=== PATIENT | female | born 1950 | race African-American/Black ===

== ENCOUNTER 2019-11-20 11:21 | Outpatient (CLI) | payer MEDICARE, OTHER, SELFPAY ==
--- NOTE | 2019-11-20 | XR_ITS ---
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 FINDINGS: Heart: Cardiomegaly. Calcified hilar nodes. Tortuous thoracic aorta. Lungs: Segmental elevation hemidiaphragm. Moderate chronic emphysematous changes. Calcified granuloma s. No acute pulmonary infiltrates. Bones: Postoperative changes lower cervical spine. XR/XR chest 2V* [id number] IMPRESSION: 1. No acute pulmonary infiltrates and no significant interval changes since 2018 2. Chronic granulomatous disease. 3. Cardiomegaly.
== END 2019-11-20 11:22 | disposition home or self-care (01) ==
LOC: RADOUTREAD 12:05
PROVIDERS: Family Provider Family Medicine; PCP Family Medicine; Visit Provider Family Medicine
DX: Z01.89 Encounter for other specified special examinations (principal)

== ENCOUNTER 2020-01-17 07:28 | Inpatient (IN) | payer MEDICARE, OTHER, SELFPAY ==
[2020-01-17] VITALS (14 sets, daily range): BP systolic 136–228; BP diastolic 57–131; PULSE 71–103; RESP 18–26; TEMP 36.9–39.3; O2SAT 89–100; BMI 47.5
--- NOTE | 2020-01-17 07:44 | XR_ITS ---
WS: [id number] XR chest 1V portable [id number] REASON FOR EXAM: cough/congestion FINDINGS: Prominent calcified granulomas are seen in the upper lungs and in the right hilum. These pa tterns are similar to the previous exam November 20, 2019. There is arteriosclerotic changes seen in the arch the aorta. There is chronic obstructive pulmonary disease findings noted. XR/XR chest 1V portable [id number] IMPRESSION: Prominent granulomas right lung particularly. Chronic obstructive pulmonary disease. Arteriosclerotic changes.
--- NOTE | 2020-01-17 07:44 | ED_ITS ---
Documented by User: NANI Burns 01/17/20 11:19 HPI - SOB/Dyspnea General: Chief Complaint: General Medical Stated Complaint: FEVER, FALL, WEAKNESS Time Seen by Provider: 01/17/20 07:43 Source: patient Mode of arrival: ambulatory Limitations: no limitations History of Present Illness: HPI Narrative: Patient is a 69-year-old female who presents to ED today with a complaint of fever and shortness of breath. She was triaged as an additional complaint of a fall however patient states she just rolled out of bed this morning. She has no complaints related to the fall. Patient tells me she began noticing fevers yesterday as high as 103. She reports shortness of breath without chest pains. Denies cough/congestion. She has not had any sick contacts or recent travel. Patient reports a history of COPD and wears a CPAP at night. She normally does not require any O2 during the day. Patient was reportedly 89% on room air upon arrival. Patient has a history of diabetes, hypertension, thyroid disease. She admittedly is not very good about taking her routine medications. She is very hypertensive upon arrival at 228/131. Patient states she has not taken any of her blood pressure medications this morning. She states normally when she takes her BP at home systolic normally runs in the 170s. She does not complain of any lower extre mity pain or swelling. When asked patient does complain of some slight dysuria and urinary frequency. She denies flank pain. Reports very mild lower abdominal pain/lower back pain (this is chronic). MD elicited complaint: shortness of breath Pertinent past history: COPD Onset (ago): day(s) Exacerbating factors: nothing Relieving factors: nothing Known history of: COPD Associated symptoms: Reports fever(s); Deny abdominal pain, chest congestion, chest pain, hemoptysis, lightheadedness, nausea, palpitations, syncope or vomiting Treatment prior to arrival: none Review of Systems Const: Reports: fever; Denies: chills, body aches, change in appetite, change in weight, fatigue or malaise Eyes: Denies: change in vision, blurry vision, floaters or seeing flashes ENMT: Denies: throat pain, enlarged tonsils or painful swallowing Card: Reports: shortness of breath on exertion (chronically ); Denies: chest pain, palpitations, irregular heart rhythm, edema, swelling of feet/ankles, lightheadedness, syncope or pre-syncope Resp: Reports: shortness of breath; Denies: productive cough, non-productive cough, pain on inspiration, coughing up blood or chest congestion GI: Reports: diarrhea (over the past 2 days); Denies: abdominal pain, nausea or vomiting : Reports: painful urination, urinary frequency and urinary urgency; Denies: flank pain, difficulty urinating or urinary incontinence Musc: Denies: neck pain or back pain (chronic lower back pain) Skin/Breast: Denies: rash Neuro: Denies: headache, numbness in extremities, weakness in extremities or changes in sensation PFSH ED PFSH: Medical History (Updated 01/17/20 @ 11:59 by Jim Walton MD) Chronic back pain Chronic neck pain Diabetes History of osteoarthritis Hypertension Surgical History (Updated 01/17/20 @ 11:59 by Jim Walton MD) History of back surgery History of neck surgery Family History (Updated 01/17/20 @ 11:59 by Jim Walton MD) Other Diabetes Social History (Updated 01/17/20 @ 12:00 by Jim Walton MD) Smoking and tobacco status: former smoker Alcohol intake: never Substance/Drug Use: never Physical Exam Const: COMMON NORMALS: no apparent distress, oriented x3, no limitations and alert NUTRITIONAL APPEARANCE: obese morbidly obese ORIENTATION/CONSCIOUSNESS: Yes oriented to person, Yes oriented to place and Yes oriented to time HENMT: COMMON NORMALS: normocephalic and head/scalp atraumatic HEAD & SCALP: normocephalic and atraumatic FACE & SINUS: normal facial exam TEETH & GINGIVA: Yes dentures THROAT: posterior oropharynx normal, tonsils normal and uvula midline Eye: COMMON NORMALS: PERRL and EOMs intact bilaterally PUPIL: Yes PERRL Neck/C-Spine: COMMON NORMALS: full ROM, no lymphadenopathy and no meningeal signs Chest: COMMONS NORMALS: inspection of chest normal and palpation of chest normal Resp: COMMON NORMALS: normal respiratory effort and clear to auscultation bilaterally AUSCULTATION: clear to auscultation bilaterally and diminished lung sounds (bilateral bases ) Cardio: COMMON NORMALS: regular rate and regular rhythm RATE: regular rate RHYTHM: regular rhythm GI: COMMON NORMALS: normal to inspection, nondistended, normoactive bowel sounds, soft to palpation, non-tender, no hepatosplenomegaly and no masses PALPATION: Yes soft and Yes no hepatosplenomegaly : COMMON NORMALS: Yes no CVA tenderness BLADDER/KIDNEY EXAM: Yes no CVA tenderness Back/Pelvis: COMMON NORMALS: no CVA tenderness Extremity: COMMON NORMALS: normal to inspection, full ROM, normal capillary refill, no joint enlargement, no clubbing, cyanosis or edema, no calf tenderness and no pedal edema Neuro: PARUL COMA SCALE: document GCS findings [place] coma scale eye opening: Spontaneous [place] coma scale verbal response: Orientated [place] coma scale motor response: Obey commands [place] coma scale total score: 15 COMMON NORMALS: oriented x3, moves all extremities, no focal motor deficits and no sensory deficits noted SENSORIUM/ORIENTATION: Yes alert, Yes oriented to person, Yes oriented to place and Yes oriented to time MENINGEAL SIGNS: Yes no meningeal signs Skin: COMMON NORMALS: no rashes or lesions noted GENERAL SKIN EXAM: no rashes or lesions noted Course Vital Signs: Vital signs: Vital Signs Temperature 98.2 F 01/18/20 12:00 Pulse Rate 81 01/18/20 12:00 Respiratory Rate 19 H 01/18/20 12:00 Blood Pressure 139/97 01/18/20 12:00 Pulse Oximetry 96 01/18/20 08:00 MDM - SOB/Dyspnea MDM Narrative: Medical decision making narrative: CXR interpreted by vrad as no acute disease however films were reviewed with Dr. Westbrook and we both feel there is a consolidation in the RLL and questionable LLL. She was satting at 89% on RA upon arrival. She is also noted to have UTI. Dr. Westbrook will speak to hospitalist for admission. Lab Data: Labs: Lab Results 01/17/20 01/17/20 01/17/20 Range/Units 07:44 07:44 07:44 WBC 15.2 H (4.0-10.0) 10^3/ uL RBC 4.42 (4.1-5.3) 10^6/u L Hgb 13.1 (11.5-15.3) g/dL Hct 40.9 (37.0-47.0) % MCV 92.5 (81-99) fL MCH 29.6 (28.0-34.0) pg MCHC 32.0 (30.0-36.0) g/dL RDW 14.6 (12.1-15.1) % Plt Count 229 (130-400) 10^3/c mm MPV 10.9 H (7.4-10.4) fL Neut % (Auto) 85.2 % Lymph % (Auto) 6.6 % Cass % (Auto) 7.5 % Eos % (Auto) 0.1 % Baso % (Auto) 0.3 % Neut # (Auto) 13.0 H (1.8-7.7) 10^3/u L Lymph # (Auto) 1.0 (0.8-4.8) 10^3/u L Cass # (Auto) 1.1 H (0.2-0.9) 10^3/u L Eos # (Auto) 0.0 (0.0-0.8) 10^3/u L Baso # (Auto) 0.0 (0.0-0.1) 10^3/u L Nucleated RBC % (a uto) 0 % Nucleated RBCs # 0.0 /100WBC Sodium 136 (136-145) mmol/L Potassium 3.3 L (3.5-5.1) mmol/L Chloride 94 L (98-107) mmol/L Carbon Dioxide 29 (22-29) mmol/L Anion Gap 16.3 (5-19) BUN 12 (8-23) mg/dL Creatinine 1.0 H (0.5-0.9) mg/dL Glucose 175 H (65-115) mg/dL Estimat Average Gl ucose Hemoglobin A1c (4.0-6.0) % Calculated Osmolal ity 282 L (285-295) mOsm/k g Lactate 1.7 (0.5-2.2) mmol/L Calcium 10.0 (8.5-10.5) mg/dL Total Bilirubin 0.7 (0.15-1.2) mg/dL AST 20 (0-32) U/L ALT 13 (0-33) U/L Alkaline Phosphata se 74 (35-105) IU/L C-Reactive Protein (0.0-4.9) mg/L NT-Pro-B Natriuret Pep (0-125) pg/mL Total Protein 7.9 (6.6-8.7) g/dL Albumin 4.3 (3.5-5.2) g/dL Globulin 3.6 (1.3-4.6) g/dL Procalcitonin (0-0.5) ng/mL Urine Color (Yellow) Urine Appearance (CLEAR) Urine pH (5-7) Ur Specific Gravit y (1.005-1.030) Urine Protein (Negative) Urine Glucose (UA) (Normal) Urine Ketones (Negative) Urine Blood (Negative) Urine Nitrate (Negative) Urine Bilirubin (NEGATIVE) Urine Urobilinogen (Negative) mg/dL Ur Leukocyte Etelvina ase (Negative) Urine RBC (0-2) /hpf Urine WBC (0-5) /hpf Ur Squamous Epith Cells (0-5) Urine Bacteria (NONE) Influenza Type A A g (Negative) Influenza Type B A g (Negative) 01/17/20 01/17/20 01/17/20 Range/Units 07:55 07:58 07:58 WBC (4.0-10.0) 10^3/ uL RBC (4.1-5.3) 10^6/u L Hgb (11.5-15.3) g/dL Hct (37.0-47.0) % MCV (81-99) fL MCH (28.0-34.0) pg MCHC (30.0-36.0) g/dL RDW (12.1-15.1) % Plt Count (130-400) 10^3/c mm MPV (7.4-10.4) fL Neut % (Auto) % Lymph % (Auto) % Cass % (Auto) % Eos % (Auto) % Baso % (Auto) % Neut # (Auto) (1.8-7.7) 10^3/u L Lymph # (Auto) (0.8-4.8) 10^3/u L Cass # (Auto) (0.2-0.9) 10^3/u L Eos # (Auto) (0.0-0.8) 10^3/u L Baso # (Auto) (0.0-0.1) 10^3/u L Nucleated RBC % (a uto) % Nucleated RBCs # /100WBC Sodium (136-145) mmol/L Potassium (3.5-5.1) mmol/L Chloride (98-107) mmol/L Carbon Dioxide (22-29) mmol/L Anion Gap (5-19) BUN (8-23) mg/dL Creatinine (0.5-0.9) mg/dL Glucose (65-115) mg/dL Estimat Average Gl ucose 166 Hemoglobin A1c 7.4 H (4.0-6.0) % Calculated Osmolal ity (285-295) mOsm/k g Lactate (0.5-2.2) mmol/L Calcium (8.5-10.5) mg/dL Total Bilirubin (0.15-1.2) mg/dL AST (0-32) U/L ALT (0-33) U/L Alkaline Phosphata se (35-105) IU/L C-Reactive Protein 133.6 H (0.0-4.9) mg/L NT-Pro-B Natriuret Pep 578 H (0-125) pg/mL Total Protein (6.6-8.7) g/dL Albumin (3.5-5.2) g/dL Globulin (1.3-4.6) g/dL Procalcitonin 3.41 H (0-0.5) ng/mL Urine Color (Yellow) Urine Appearance (CLEAR) Urine pH (5-7) Ur Specific Gravit y (1.005-1.030) Urine Protein (Negative) Urine Glucose (UA) (Normal) Urine Ketones (Negative) Urine Blood (Negative) Urine Nitrate (Negative) Urine Bilirubin (NEGATIVE) Urine Urobilinogen (Negative) mg/dL Ur Leukocyte Etelvina ase (Negative) Urine RBC (0-2) /hpf Urine WBC (0-5) /hpf Ur Squamous Epith Cells (0-5) Urine Bacteria (NONE) Influenza Type A A g (Negative) Influenza Type B A g (Negative) 01/17/20 01/17/20 Range/Units 08:35 09:54 WBC (4.0-10.0) 10^3/ uL RBC (4.1-5.3) 10^6/u L Hgb (11.5-15.3) g/dL Hct (37.0-47.0) % MCV (81-99) fL MCH (28.0-34.0) pg MCHC (30.0-36.0) g/dL RDW (12.1-15.1) % Plt Count (130-400) 10^3/c mm MPV (7.4-10.4) fL Neut % (Auto) % Lymph % (Auto) % Cass % (Auto) % Eos % (Auto) % Baso % (Auto) % Neut # (Auto) (1.8-7.7) 10^3/u L Lymph # (Auto) (0.8-4.8) 10^3/u L Cass # (Auto) (0.2-0.9) 10^3/u L Eos # (Auto) (0.0-0.8) 10^3/u L Baso # (Auto) (0.0-0.1) 10^3/u L Nucleated RBC % (a uto) % Nucleated RBCs # /100WBC Sodium (136-145) mmol/L Potassium (3.5-5.1) mmol/L Chloride (98-107) mmol/L Carbon Dioxide (22-29) mmol/L Anion Gap (5-19) BUN (8-23) mg/dL Creatinine (0.5-0.9) mg/dL Glucose (65-115) mg/dL Estimat Average Gl ucose Hemoglobin A1c (4.0-6.0) % Calculated Osmolal ity (285-295) mOsm/k g Lactate (0.5-2.2) mmol/L Calcium (8.5-10.5) mg/dL Total Bilirubin (0.15-1.2) mg/dL AST (0-32) U/L ALT (0-33) U/L Alkaline Phosphata se (35-105) IU/L C-Reactive Protein (0.0-4.9) mg/L NT-Pro-B Natriuret Pep (0-125) pg/mL Total Protein (6.6-8.7) g/dL Albumin (3.5-5.2) g/dL Globulin (1.3-4.6) g/dL Procalcitonin (0-0.5) ng/mL Urine Color Yellow (Yellow) Urine Appearance Hazy A (CLEAR) Urine pH 5 (5-7) Ur Specific Gravit y 1.010 (1.005-1.030) Urine Protein 1+ H (Negative) Urine Glucose (UA) Norm (Normal) Urine Ketones Negative (Negative) Urine Blood 3+ H (Negative) Urine Nitrate Negative (Negative) Urine Bilirubin Neg (NEGATIVE) Urine Urobilinogen Norm (Negative) mg/dL Ur Leukocyte Etelvina ase 2+ H (Negative) Urine RBC 0-4 H (0-2) /hpf Urine WBC >100 H (0-5) /hpf Ur Squamous Epith Cells None (0-5) Urine Bacteria 1+ H (NONE) Influenza Type A A g Negative (Negative) Influenza Type B A g Negative (Negative) Imaging Data^: CXR: Radiologist's impression: [address] [address] XRay Report Signed Patient: Mayi Atkins Unit #: [id number] : [id number] Age/Sex: 69 / F ADM Date: 01/17/20 Loc: ER Room/Bed: Attending Dr: Ordering Provider/Ordering MD: Kylah Garrett Date of Service: 01/17/20 Procedure(s): XR chest 1V portable [id number] Accession Number(s): [id number] Report Number: [id number] WS: [id number] XR chest 1V portable [id number] REASON FOR EXAM: cough/congestion FINDINGS: Prominent calcified granulomas are seen in the upper lungs and in the right hilum. These patterns are similar to the previous exam November 20, 2019. There is arteriosclerotic changes seen in the arch the aorta. There is chronic obstructive pulmonary disease findings noted. XR/XR chest 1V portable [id number] IMPRESSION: Prominent granulomas right lung particularly. Chronic obstructive pulmonary disease. Arteriosclerotic changes. Dictated By: Tommie Bass DO Signed By: Tommie Bass DO Signed Date/Time: 01/17/20822 DD/ 1 Discharge Plan Discharge Patient Disposition: Admitted As Inpatient Admit Provider: Jim Walton Clinical Impression: Acute cystitis with hematuria Pneumonia Qualifiers: Pneumonia type: due to unspecified organism Laterality: bilateral Lung loca tion: lower lobe of lung Qualified Code(s): J18.9 - Pneumonia, unspecified organism Condition: Stable Referrals: Nemesio Ireland MD [Primary Care Provider] - Discharge Date/Time: 01/17/20 11:15 Coding Level of Care Code ED Quality Improvement Analyst for Chg Fwd Exam Comprehensive Documented by User: Gordy Westbrook DO 01/18/20 14:01 HPI - SOB/Dyspnea General: Chief Complaint: General Medical Stated Complaint: FEVER, FALL, WEAKNESS Time Seen by Provider: 01/17/20 07:43 PFS ED PFSH: Medical History (Updated 01/17/20 @ 11:59 by Jim Walton MD) Chronic back pain Chronic neck pain Diabetes History of osteoarthritis Hypertension Surgical History (Updated 01/17/20 @ 11:59 by Jim Wlaton MD) History of back surgery History of neck surgery Family History (Updated 01/17/20 @ 11:59 by Jim Walton MD) Other Diabetes Social History (Updated 01/17/20 @ 12:00 by Jim Walton MD) Smoking and tobacco status: former smoker Alcohol intake: never Substance/Drug Use: never Physical Exam HENMT: COMMON NORMALS: normocephalic, head/scalp atraumatic, hearing grossly normal bilaterally, external ears normal, TM's normal bilaterally and nasal mucous membranes and turbinates normal HEAD & SCALP: normocephalic and atraumatic NOSE: nasal mucous membranes and turbinates normal EXTERNAL EAR: Yes external ears normal TYMPANIC MEMBRANE: TM's normal bilaterally Eye: COMMON NORMALS: PERRL, EOMs intact bilaterally, conjunctivae normal and no scleral icterus CONJUNCTIVA: Yes conjunctivae normal PUPIL: Yes PERRL Neck/C-Spine: COMMON NORMALS: full ROM, no lymphadenopathy, supple and no JVD Lymph: LYMPHATIC: no lymphadenopathy noted and no lymphedema noted Resp: COMMON NORMALS: normal respiratory effort, no retractions, no use of accessory muscles and clear to auscultation bilaterally AUSCULTATION: clear to auscultation bilaterally Cardio: COMMON NORMALS: no JVD, regular rate, regular rhythm and no murmurs RATE: regular rate RHYTHM: regular rhythm GI: COMMON NORMALS: soft to palpation and no hepatosplenomegaly AUSCULTATION: Yes normoactive bowel sounds PALPATION: Yes soft, No tender, No guarding and Yes no hepatosplenomegaly Extremity: COMMON NORMALS: normal to inspection, normal capillary refill, no clubbing, cyanosis or edema, no calf tenderness and no pedal edema Course Vital Signs: Vital signs: Vital Signs Temperature 98.2 F 01/18/20 12:00 Pulse Rate 81 01/18/20 12:00 Respiratory Rate 19 H 01/18/20 12:00 Blood Pressure 139/97 01/18/20 12:00 Pulse Oximetry 96 01/18/20 08:00 MDM - SOB/Dyspnea MDM Narrative: Medical decision making narrative: Patient initially seen by Kylah Garrett I seen and examined the patient agree with her diagnosis suspect she does have a clinically have a pneumonia will go ahead and admit discussed with hospitalist. She is also hypokalemic. Cussed with hospitalist orders to admit written Lab Data: Attestation: I reviewed the patient's lab results. Labs: Lab Results 01/17/20 01/17/20 01/17/20 Range/Units 07:44 07:44 07:44 WBC 15.2 H (4.0-10.0) 10^3/ uL RBC 4.42 (4.1-5.3) 10^6/u L Hgb 13.1 (11.5-15.3) g/dL Hct 40.9 (37.0-47.0) % MCV 92.5 (81-99) fL MCH 29.6 (28.0-34.0) pg MCHC 32.0 (30.0-36.0) g/dL RDW 14.6 (12.1-15.1) % Plt Count 229 (130-400) 10^3/c mm MPV 10.9 H (7.4-10.4) fL Neut % (Auto) 85.2 % Lymph % (Auto) 6.6 % Cass % (Auto) 7.5 % Eos % (Auto) 0.1 % Baso % (Auto) 0.3 % Neut # (Auto) 13.0 H (1.8-7.7) 10^3/u L Lymph # (Auto) 1.0 (0.8-4.8) 10^3/u L Cass # (Auto) 1.1 H (0.2-0.9) 10^3/u L Eos # (Auto) 0.0 (0.0-0.8) 10^3/u L Baso # (Auto) 0.0 (0.0-0.1) 10^3/u L Nucleated RBC % (a uto) 0 % Nucleated RBCs # 0.0 /100WBC Sodium 136 (136-145) mmol/L Potassium 3.3 L (3.5-5.1) mmol/L Chloride 94 L (98-107) mmol/L Carbon Dioxide 29 (22-29) mmol/L Anion Gap 16.3 (5-19) BUN 12 (8-23) mg/dL Creatinine 1.0 H (0.5-0.9) mg/dL Glucose 175 H (65-115) mg/dL Estimat Average Gl ucose Hemoglobin A1c (4.0-6.0) % Calculated Osmolal ity 282 L (285-295) mOsm/k g Lactate 1.7 (0.5-2.2) mmol/L Calcium 10.0 (8.5-10.5) mg/dL Total Bilirubin 0.7 (0.15-1.2) mg/dL AST 20 (0-32) U/L ALT 13 (0-33) U/L Alkaline Phosphata se 74 (35-105) IU/L C-Reactive Protein (0.0-4.9) mg/L NT-Pro-B Natriuret Pep (0-125) pg/mL Total Protein 7.9 (6.6-8.7) g/dL Albumin 4.3 (3.5-5.2) g/dL Globulin 3.6 (1.3-4.6) g/dL Procalcitonin (0-0.5) ng/mL Urine Color (Yellow) Urine Appearance (CLEAR) Urine pH (5-7) Ur Specific Gravit y (1.005-1.030) Urine Protein (Negative) Urine Glucose (UA) (Normal) Urine Ketones (Negative) Urine Blood (Negative) Urine Nitrate (Negative) Urine Bilirubin (NEGATIVE) Urine Urobilinogen (Negative) mg/dL Ur Leukocyte Etelvina ase (Negative) Urine RBC (0-2) /hpf Urine WBC (0-5) /hpf Ur Squamous Epith Cells (0-5) Urine Bacteria (NONE) Influenza Type A A g (Negative) Influenza Type B A g (Negative) 01/17/20 01/17/20 01/17/20 Range/Units 07:55 07:58 07:58 WBC (4.0-10.0) 10^3/ uL RBC (4.1-5.3) 10^6/u L Hgb (11.5-15.3) g/dL Hct (37.0-47.0) % MCV (81-99) fL MCH (28.0-34.0) pg MCHC (30.0-36.0) g/dL RDW (12.1-15.1) % Plt Count (130-400) 10^3/c mm MPV (7.4-10.4) fL Neut % (Auto) % Lymph % (Auto) % Cass % (Auto) % Eos % (Auto) % Baso % (Auto) % Neut # (Auto) (1.8-7.7) 10^3/u L Lymph # (Auto) (0.8-4.8) 10^3/u L Cass # (Auto) (0.2-0.9) 10^3/u L Eos # (Auto) (0.0-0.8) 10^3/u L Baso # (Auto) (0.0-0.1) 10^3/u L Nucleated RBC % (a uto) % Nucleated RBCs # /100WBC Sodium (136-145) mmol/L Potassium (3.5-5.1) mmol/L Chloride (98-107) mmol/L Carbon Dioxide (22-29) mmol/L Anion Gap (5-19) BUN (8-23) mg/dL Creatinine (0.5-0.9) mg/dL Glucose (65-115) mg/dL Estimat Average Gl ucose 166 Hemoglobin A1c 7.4 H (4.0-6.0) % Calculated Osmolal ity (285-295) mOsm/k g Lactate (0.5-2.2) mmol/L Calcium (8.5-10.5) mg/dL Total Bilirubin (0.15-1.2) mg/dL AST (0-32) U/L ALT (0-33) U/L Alkaline Phosphata se (35-105) IU/L C-Reactive Protein 133.6 H (0.0-4.9) mg/L NT-Pro-B Natriuret Pep 578 H (0-125) pg/mL Total Protein (6.6-8.7) g/dL Albumin (3.5-5.2) g/dL Globulin (1.3-4.6) g/dL Procalcitonin 3.41 H (0-0.5) ng/mL Urine Color (Yellow) Urine Appearance (CLEAR) Urine pH (5-7) Ur Specific Gravit y (1.005-1.030) Urine Protein (Negative) Urine Glucose (UA) (Normal) Urine Ketones (Negative) Urine Blood (Negative) Urine Nitrate (Negative) Urine Bilirubin (NEGATIVE) Urine Urobilinogen (Negative) mg/dL Ur Leukocyte Etelvina ase (Negative) Urine RBC (0-2) /hpf Urine WBC (0-5) /hpf Ur Squamous Epith Cells (0-5) Urine Bacteria (NONE) Influenza Type A A g (Negative) Influenza Type B A g (Negative) 01/17/20 01/17/20 Range/Units 08:35 09:54 WBC (4.0-10.0) 10^3/ uL RBC (4.1-5.3) 10^6/u L Hgb (11.5-15.3) g/dL Hct (37.0-47.0) % MCV (81-99) fL MCH (28.0-34.0) pg MCHC (30.0-36.0) g/dL RDW (12.1-15.1) % Plt Count (130-400) 10^3/c mm MPV (7.4-10.4) fL Neut % (Auto) % Lymph % (Auto) % Cass % (Auto) % Eos % (Auto) % Baso % (Auto) % Neut # (Auto) (1.8-7.7) 10^3/u L Lymph # (Auto) (0.8-4.8) 10^3/u L Cass # (Auto) (0.2-0.9) 10^3/u L Eos # (Auto) (0.0-0.8) 10^3/u L Baso # (Auto) (0.0-0.1) 10^3/u L Nucleated RBC % (a uto) % Nucleated RBCs # /100WBC Sodium (136-145) mmol/L Potassium (3.5-5.1) mmol/L Chloride (98-107) mmol/L Carbon Dioxide (22-29) mmol/L Anion Gap (5-19) BUN (8-23) mg/dL Creatinine (0.5-0.9) mg/dL Glucose (65-115) mg/dL Estimat Average Gl ucose Hemoglobin A1c (4.0-6.0) % Calculated Osmolal ity (285-295) mOsm/k g Lactate (0.5-2.2) mmol/L Calcium (8.5-10.5) mg/dL Total Bilirubin (0.15-1.2) mg/dL AST (0-32) U/L ALT (0-33) U/L Alkaline Phosphata se (35-105) IU/L C-Reactive Protein (0.0-4.9) mg/L NT-Pro-B Natriuret Pep (0-125) pg/mL Total Protein (6.6-8.7) g/dL Albumin (3.5-5.2) g/dL Globulin (1.3-4.6) g/dL Procalcitonin (0-0.5) ng/mL Urine Color Yellow (Yellow) Urine Appearance Hazy A (CLEAR) Urine pH 5 (5-7) Ur Specific Gravit y 1.010 (1.005-1.030) Urine Protein 1+ H (Negative) Urine Glucose (UA) Norm (Normal) Urine Ketones Negative (Negative) Urine Blood 3+ H (Negative) Urine Nitrate Negative (Negative) Urine Bilirubin Neg (NEGATIVE) Urine Urobilinogen Norm (Negative) mg/dL Ur Leukocyte Etelvina ase 2+ H (Negative) Urine RBC 0-4 H (0-2) /hpf Urine WBC >100 H (0-5) /hpf Ur Squamous Epith Cells None (0-5) Urine Bacteria 1+ H (NONE) Influenza Type A A g Negative (Negative) Influenza Type B A g Negative (Negative) Discharge Plan Discharge Patient Disposition: Admitted As Inpatient Admit Provider: Jim Walton Clinical Impression: Acute cystitis with hematuria Pneumonia Qualifiers: Pneumonia type: due to unspecified organism Laterality: bilateral Lung location: lower lobe of lung Qualified Code(s): J18.9 - Pneumonia, unspecified organism Condition: Stable Referrals: Nemesio Ireland MD [Primary Care Provider] - Discharge Date/Time: 01/17/20 11:15 Coding Level of Care Code ED Quality Improvement Analyst for Chg Fwd Exam Comprehensive
[2020-01-17] MEDS: sodium chloride 0.9% 1,000 ML 999 ML IV (08:06)
[2020-01-17] MEDS: acetaminophen 500 mg Tablet 1000 MG PO (08:08)
[2020-01-17 08:28] LABS: Basophils % 0.3 %; Eosinophils % 0.1 %; Hematocrit 40.9 % (37.0-47.0); Hemoglobin 13.1 g/dL (11.5-15.3); Lymphocytes % 6.6 %; Mean Corpuscular Hemoglobin 29.6 pg (28.0-34.0); Mean Corpuscular Volume 92.5 fL (81-99); Mean Platelet Volume 10.9 fL (7.4-10.4); Monocytes # 1.1 10^3/uL (0.2-0.9); Monocytes % 7.5 %; Neutrophils % 85.2 %; Nucleated Red Blood Cells % 0 %; Platelet Count 229 10^3/cmm (130-400); Red Blood Count 4.42 10^6/uL (4.1-5.3); Red Cell Distribution Width 14.6 % (12.1-15.1); White Blood Count 15.2 10^3/uL (4.0-10.0)
[2020-01-17] MEDS: cefTRIAXone 1,000 MG in sodium chloride 0.9% (plus) 50 ML 100 MG IV (08:39)
[2020-01-17 08:40] LABS: Lactate (Lactic Acid level) 1.7 mmol/L (0.5-2.2)
[2020-01-17 08:41] LABS: Alanine Aminotransferase 13 U/L (0-33); Albumin Level 4.3 g/dL (3.5-5.2); Alkaline Phosphatase 74 IU/L (35-105); Anion Gap 16.3 (5-19); Aspartate Amino Transferase 20 U/L (0-32); Blood Urea Nitrogen 12 mg/dL (8-23); Carbon Dioxide 29 mmol/L (22-29); Chloride 94 mmol/L (98-107); Creatinine Clr Calc Pharmacy 62.9132; Globulin 3.6 g/dL (1.3-4.6); Glucose 175 mg/dL (65-115); Osmolality Calculated 282 mOsm/kg (285-295); Potassium 3.3 mmol/L (3.5-5.1); Sodium 136 mmol/L (136-145); Total Bilirubin 0.7 mg/dL (0.15-1.2); Total Protein 7.9 g/dL (6.6-8.7)
[2020-01-17 09:10] LABS: Add Urine Culture? Yes; Add Urine Microscopic? YES; Bacteria Urine 1+; Bilirubin Urine Neg (NEGATIVE); Blood Urine 3+ (Negative); Glucose Urine UA Norm (Normal); Ketones Urine Negative (Negative); Leukocyte Esterase Urine 2+ (Negative); Nitrate Urine Negative (Negative); Protein Urine 1+ (Negative); RBC Urine 0-4 /hpf (0-2); Urine Appearance Hazy (CLEAR); Urine Color Yellow (Yellow); Urobilinogen Urine Norm (Negative); WBC Urine >100 /hpf (0-5); pH Urine 5 (5-7)
[2020-01-17 09:11] LABS: NT Pro B Type Natriuretic Pept 578 pg/mL (0-125)
[2020-01-17] MEDS: azithromycin 500 MG in sodium chloride 0.9% 250 ML 250 MG IV (09:14)
--- NOTE | 2020-01-17 09:22 | PC.NURSE ---
Patient swabbed at this time for COVID. COVID swab sent to lab. Second COVID swab will be sent with Gina Vital infectious disease.
[2020-01-17 10:20] LABS: Influenza A by IFA Negative (Negative); Influenza B by IFA Negative (Negative)
--- NOTE | 2020-01-17 11:54 | PM.HP ---
Providers/Chief Complaint Admitting Physician: Jim Walton MD Primary Care Provider: Nemesio Ireland MD Chief Complaint: PNEUMONIA, CYSTITIS History of Present Illness Mayi Atkins is a 69 year old female with a past medical history of [id number] type 2 diabetes mellitus, hypertension, hyperlipidemia, chronic back pain, obstructive sleep apnea on CPAP who presents the emergency room due to complaints of fevers and shortness of breath. Patient states that she lives in [place], with her , who is been recently been ill with a stroke and an aneurysm, also her son is at home. No recent travel, no recent sick contacts, patient has been abiding by the stay at home orders. Patient states that she has been checking her temperature regularly as she is worried about COVID-19, states that starting yesterday evening she had temperatures as high as 103.1, she also noticed some sinus congestion, and some shortness of breath with exertion. Denies cough, has some sinus congestion. patient denies headaches, blurry vision, nausea, vomiting, has chronic neck pain, but no neck stiffness, has chronic back pain, no back pain out of the ordinary, denies abdominal pain, does report diarrhea, denies dysuria, denies hematuria, denies history of nephrolithiasis, does complain of left flank pain, does state that she been urinating more frequently, no falls, no injuries. Patient also states that she was talking to her son last night, and her son felt that she sounded confused last night. No strokelike symptoms, no facial droop, no paralysis, no visual changes, no slurring of her speech, no dysphagia, no seizure-like activity. Review of Systems Const: Reports: fever, fatigue and malaise; Denies: chills Eyes: Denies: change in vision or blurry vision ENMT: Denies: throat pain or nasal congestion Card: Denies: chest pain or palpitations Resp: Reports: shortness of breath; Denies: productive cough, non-productive cough or wheezing GI: Denies: abdominal pain, nausea, vomiting, vomiting blood, diarrhea, constipation, blood in stool or black tarry stool : Reports: flank pain; Denies: painful urination or urinary frequency Musc: Denies: neck pain or back pain Skin/Breast: Denies: rash Neuro: Denies: headache, dizziness or vertigo Psych: Denies: anxiety or depression Endo: Denies: excessive urination or excessive thirst Medications/Allergies Home Medications Medication Instructions Recorded Confirmed Last Taken Type One-A-Day Womens Formula 1 tab PO DAILY 01/17/20 01/17/20 01/16/20 History amlodipine-benazepril 1 cap PO DAILY 01/17/20 01/17/20 Unknown History escitalopram oxalate [Lexapro] 10 mg PO DAILY 01/17/20 01/17/20 01/16/20 History hydrochlorothiazide 50 mg PO DAILY 01/17/20 01/17/20 Unknown History levothyroxine 88 mcg PO DAILY 01/17/20 01/17/20 01/16/20 History metformin 1,000 mg PO DAILY 01/17/20 01/17/20 01/16/20 History metoprolol succinate [Toprol XL] 100 mg PO DAILY 01/17/20 01/17/20 01/16/20 History oxycodone-acetaminophen 1 tab PO Q6H PRN 01/17/20 01/17/20 Unknown History Allergies Allergy/AdvReac Type Severity Reaction Status Date / Time No Known Allergies Allergy Verified 01/17/20 07:37 PFSH Acute PFSH: Medical History (Updated 01/17/20 @ 11:59 by Jim Walton MD) Chronic back pain Chronic neck pain Diabetes History of osteoarthritis Hypertension Surgical History (Updated 01/17/20 @ 11:59 by Jim Walton MD) History of back surgery History of neck surgery Family History (Updated 01/17/20 @ 11:59 by Jim Walton MD) Other Diabetes Social History (Updated 01/17/20 @ 12:00 by Jim Walton MD) Smoking and tobacco status: former smoker Alcohol intake: never Substance/Drug Use: never Vitals/I&O/Wt Last Vital Signs Temp 100.1 F H 01/17/20 09:20 Pulse 71 01/17/20 11:07 Resp 22 H 01/17/20 11:07 BP 150/77 01/17/20 11:07 Pulse Ox 100 01/17/20 11:07 01/16/20 01/17/20 01/17/20 22:59 06:59 14:59 Intake Total 1300 / 1300 Balance 1300 / 1300 Weight last 48 hrs Weight 117.934 kg Physical Exam Const: COMMON NORMALS: no apparent distress and oriented x3 GENERAL APPEARANCE: cooperative and comfortable HENMT: COMMON NORMALS: normocephalic HEAD & SCALP: normocephalic Eye: COMMON NORMALS: PERRL, EOMs intact bilaterally and no papilledema GENERAL EYE: normal appearance of both eyes PUPIL: Yes PERRL DIRECT OPHTHALMOSCOPY: Yes no papilledema Neck/C-Spine: COMMON NORMALS: full ROM, no lymphadenopathy, no JVD and thyroid normal THYROID: thyroid normal Lymph: LYMPHATIC: no lymphadenopathy noted Resp: COMMON NORMALS: normal respiratory effort, no retractions, no use of accessory muscles and clear to auscultation bilaterally AUSCULTATION: clear to auscultation bilaterally Cardio: COMMON NORMALS: no JVD, regular rate, regular rhythm, S1 normal heart sound, S2 normal heart sound, no gallops, no clicks and no murmurs RATE: regular rate RHYTHM: regular rhythm HEART SOUNDS: S1 normal and S2 normal GI: COMMON NORMALS: normal to inspection, nondistended, normoactive bowel sounds, soft to palpation, non-tender and no hepatosplenomegaly PALPATION: Yes soft and Yes no hepatosplenomegaly Extremity: COMMON NORMALS: normal to inspection, full ROM and no pedal edema Neuro: COMMON NORMALS: oriented x3, CN's II-XII intact bilaterally, moves all extremities and no focal motor deficits Psych: COMMON NORMALS: mental status grossly normal, thought process normal and cooperative THOUGHT PROCESS: normal thought process Data : 01/17/20 07:44 01/17/20 07:44 Micro: Microbiology 01/17/20 08:35 Blood Culture - Preliminary Blood SPECIMEN COLLECTED 01/17/20 07:44 Blood Culture - Preliminary Blood SPECIMEN COLLECTED A&P Assessment and plan (1) Acute cystitis with hematuria: -Has evidence of UTI with components of left pyelonephriti -CT scan on 05/01/2019 showed:1. Exophytic left upper pole renal cyst measuring 1.7 CM. Additional renal cyst right mid kidney measuring 2.4 CM. 2. Tiny hemorrhagic cyst lower pole left kidney. Small exophytic indeterminant renal cortical lesions 7 mm right mid kidney and 7 mm left lower pole. These are too small to characterize. 3. Left renal pelvic calculus measuring 16 mm. No evidence of obstruction. No visualized right renal parenchymal calculi. PLAN: -Rocephin for antibiotic coverage -LR at 75 cc an hour -Follow urine cultures, blood cultures -Repeat CT scan of the abdomen and pelvis Status: Acute (2) Pneumonia: -Patient is requiring 2 L of oxygen, T-max 102.8 -We will obtain blood cultures, sputum cultures, urine bacterial antigens -COVID-19 testing pending, COVID-19 precautions -Patient is a full code, okay with mechanical ventilation if required -Continue azithromycin and Rocephin, oxygen therapy, nebulizer therapy Status: Acute Qualifiers: Laterality: bilateral Lung location: lower lobe of lung Pneumonia type: due to unspecified organism Qualified Code(s): J18.9 - Pneumonia, unspecified organism (3) Diabetes: Low-dose sliding scale Status: Acute (4) Hypertension: Continue home medications Status: Acute Attestations Medical Necessity Statement*: Patient requires hospitalization, greater than 2 midnights, for UTI and pneumonia Coding Level of Care Code Acute Contract Administration Specialist for [facility] Diagnoses Acute cystitis with hematuria N30.01 Pneumonia J18.9 Laterality: bilateral Lung location: lower lobe of lung Pneumonia type: due to unspecified organism Diabetes E11.9 Hypertension I10
[2020-01-17 12:06] LABS: Procalcitonin 3.41 ng/mL (0-0.5)
[2020-01-17 12:16] LABS: C Reactive Protein 133.6 mg/L (0.0-4.9)
[2020-01-17] MEDS: lactated ringers 1,000 ML 75 ML IV (12:22)
[2020-01-17 16:33] LABS: Estmated Average Glucose 166; Hemoglobin A1C 7.4 % (4.0-6.0)
[2020-01-17] MEDS: enoxaparin 40 mg/0.4 mL Syringe SUBCUT (17:55)
[2020-01-17 18:03] LABS: Glucose Point of Care 150 mg/dL (70-110)
[2020-01-17 18:40] LABS: Glucose Point of Care 131 mg/dL (70-110)
--- NOTE | 2020-01-17 19:01 | PC.NURSE ---
Patient is ambulatory in room, patient does not want to wear these at this time. Will continue to monitor for usage of compression.
[2020-01-17] MEDS: acetaminophen 325 mg Tablet 650 MG PO (19:32)
[2020-01-17 20:07] LABS: Glucose Point of Care 168 mg/dL (70-110)
[2020-01-18] VITALS (14 sets, daily range): BP systolic 117–176; BP diastolic 66–97; PULSE 75–93; RESP 16–22; TEMP 36.5–37.3; O2SAT 92–98
--- NOTE | 2020-01-18 | SCC_ITS ---
Procedure Done: Cystoscopy, left ureteral stent placement. Fluoroscopic guidance was provided to Dr. Yusuf by the radiology department. No permanent C-fiona images were obtained. RALPH
[2020-01-18] MEDS: lactated ringers 1,000 ML 75 ML IV ×2 (00:39→17:28)
[2020-01-18 04:58] LABS: Basophils % 0.2 %; Hemoglobin 11.1 g/dL (11.5-15.3); Lymphocytes # 1.1 10^3/uL (0.8-4.8); Lymphocytes % 5.5 %; Mean Corpuscular HGB Conc 31.7 g/dL (30.0-36.0); Mean Corpuscular Hemoglobin 29.2 pg (28.0-34.0); Mean Corpuscular Volume 92.1 fL (81-99); Mean Platelet Volume 11.4 fL (7.4-10.4); Monocytes # 1.6 10^3/uL (0.2-0.9); Monocytes % 7.9 %; Neutrophils # 17.7 10^3/uL (1.8-7.7); Neutrophils % 85.8 %; Nucleated Red Blood Cells % 0 %; Platelet Count 223 10^3/cmm (130-400); Red Cell Distribution Width 14.6 % (12.1-15.1); White Blood Count 20.6 10^3/uL (4.0-10.0)
[2020-01-18 05:31] LABS: Alanine Aminotransferase 15 U/L (0-33); Albumin Level 3.5 g/dL (3.5-5.2); Alkaline Phosphatase 70 IU/L (35-105); Anion Gap 16.7 (5-19); Aspartate Amino Transferase 25 U/L (0-32); Blood Urea Nitrogen 10 mg/dL (8-23); Calcium 9.7 mg/dL (8.5-10.5); Carbon Dioxide 28 mmol/L (22-29); Chloride 97 mmol/L (98-107); Globulin 4.1 g/dL (1.3-4.6); Glucose 180 mg/dL (65-115); Osmolality Calculated 289 mOsm/kg (285-295); Sodium 139 mmol/L (136-145); Total Bilirubin 0.6 mg/dL (0.15-1.2); Total Protein 7.6 g/dL (6.6-8.7)
[2020-01-18 05:32] LABS: Magnesium 1.7 mg/dL (1.7-2.3); Phosphorus 1.6 mg/dL (2.5-4.5)
[2020-01-18 05:33] LABS: Cholesterol 176 mg/dL (0-200); HDL Cholesterol 55 mg/dL (60-100); LDL Cholesterol Calculated 99 mg/dL (50-129); Triglycerides 108 mg/dL (0-150)
[2020-01-18 05:50] LABS: Potassium 2.7 mmol/L (3.5-5.1)
[2020-01-18] MEDS: hydroCHLOROthiazide 25 mg Tablet PO (08:01)
[2020-01-18] MEDS: escitalopram 10 mg Tablet PO (08:01)
[2020-01-18] MEDS: metoprolol succinate ER (24 HR) 100 mg Tablet PO (08:01)
[2020-01-18] MEDS: amlodipine 5 mg Tablet PO (08:01)
[2020-01-18] MEDS: multivitamin therapeutic Tablet 1 TAB PO (08:01)
[2020-01-18] MEDS: levothyroxine 88 mcg Tablet PO (08:01)
[2020-01-18] MEDS: cefTRIAXone 1,000 MG in sodium chloride 0.9% (plus) 50 ML 100 MG IV (08:02)
[2020-01-18] MEDS: azithromycin 500 MG in sodium chloride 0.9% 250 ML 250 MG IV (08:03)
[2020-01-18] MEDS: potassium chloride premix 40 MEQ/100 ML PREMIX 25 MEQ IV (08:04)
[2020-01-18 08:39] LABS: Glucose Point of Care 148 mg/dL (70-110)
[2020-01-18 12:22] LABS: Glucose Point of Care 89 mg/dL (70-110)
--- NOTE | 2020-01-18 13:00 | CT_ITS ---
WS: [id number] CT abdomen pelvis wo con [id number] REASON FOR EXAM: uti, hx of nephrolithiasis, r/o obstructive IV CONTRAST ADMINISTERED: None. TOTAL EXAM DLP: 1786.[address] scans at [facility] use at least one of these dose optimization techniques: automat ed exposure control; mA and/or kV adjustment per patient size (includes targeted exams where dose is matched to clinical indication); or iterative reconstruction. FINDINGS: Obstructive uropathy on the left side is noted with a prominent stones seen in the pelvis o n the left side measures 15.05 cm. An exophytic lesion is also seen in the left kidney measures 2.25 cm appears to be some hemorrhage in the lesion. Right kidney shows a benign appearing cyst measures 2.97 cm and a small exophytic cyst is seen measur es 11.47 mm. In the gallbladder is a large solitary stone. The liver was normal. Previous coronary bypass changes in the heart are seen in the lower lungs were normal. The liver, stomach, spleen, aorta, inferior vena cava, and adrenal glands are normal. Along the splenic flexure on the left is numerous diverticula and diverticulosis is seen throughout t he descending colon. Calcified uterine fibroids are also seen in a small uterus. A calcified mass is seen in the area of the left ovary suggesting a dermoid cyst. CT/CT abdomen pelvis wo con [id number] Impression: Obstructive uropathy of the left kidney with a large stone seen in the pelvis. Small hemorrhagic cyst along the periphery of the left kidney The right kidney shows a benign cyst and a small exophytic cyst also appears to be benign. Cholelithiasis. Calcified uterine fibroids We suspected a dermoid cyst in the left ovary behind the uterus.
[2020-01-18] MEDS: albuterol 8 gm MDI 2 PUFF INHALATION (13:50)
--- NOTE | 2020-01-18 15:14 | PC.NURSE ---
report called to briana. Personal belongings taken to room 278-1. pt to ct prior to transfer. wished well
--- NOTE | 2020-01-18 15:40 | P.PN_ITS ---
Subjective Subjective: Interval history: This morning patient has no significant complaints, had a couple of fever episodes overnight, denies dysuria, but does have left flank pain, no nausea, no vomiting, no lightheadedness, no dizziness Vitals/I&O/Wt Last Vital Signs Temp 98.2 F 01/18/20 15:28 Pulse 81 01/18/20 15:28 Resp 18 01/18/20 15:28 BP 167/90 01/18/20 15:28 Pulse Ox 98 01/18/20 15:28 01/18/20 01/18/20 01/18/20 06:59 14:59 22:59 Intake Total 2089.25 / 3749.25 862.5 / 862.5 Output Total 300 / 300 Balance 2089.25 / 2849.25 562.5 / 562.5 Weight last 48 hrs Weight 117.934 kg Physical Exam Const: COMMON NORMALS: no apparent distress and oriented x3 HENMT: COMMON NORMALS: normocephalic HEAD & SCALP: normocephalic Neck/C-Spine: COMMON NORMALS: no JVD Resp: COMMON NORMALS: normal respiratory effort, no retractions, no use of accessory muscles and clear to auscultation bilaterally AUSCULTATION: clear to auscultation bilaterally Cardio: COMMON NORMALS: no JVD, regular rate, regular rhythm, S1 normal heart sound and S2 normal heart sound RATE: regular rate RHYTHM: regular rhythm HEART SOUNDS: S1 normal and S2 normal GI: COMMON NORMALS: normal to inspection, nondistended, normoactive bowel sounds, soft to palpation, non-tender, no hepatosplenomegaly, no masses and no bruits PALPATION: Yes soft and Yes no hepatosplenomegaly Extremity: COMMON NORMALS: normal capillary refill, no clubbing, cyanosis or edema, no calf tenderness and no pedal edema Neuro: COMMON NORMALS: oriented x3 Psych: COMMON NORMALS: mental status grossly normal Data : 01/18/20 04:23 01/18/20 04:23 Micro: Microbiology 01/17/20 07:44 Blood Culture - Preliminary Blood Gram Negative Rods 01/17/20 08:35 Blood Culture - Preliminary Blood Gram Negative Rods 01/17/20 08:35 Urine Culture - Preliminary Urine,Clean Catch Gram Negative Rods 01/17/20 08:35 Bacterial Antigens - Final Urine,Voided A&P Assessment and plan (1) Acute cystitis with hematuria: -Has evidence of UTI with components of left pyelonephritis and gram- negative bacteremia -CT scan on 05/01/2019 showed:1. Exophytic left upper pole renal cyst measuring 1.7 CM. Additional renal cyst right mid kidney measuring 2.4 CM. 2. Tiny hemorrhagic cyst lower pole left kidney. Small exophytic indeterminant renal cortical lesions 7 mm right mid kidney and 7 mm left lower pole. These are too small to characterize. 3. Left renal pelvic calculus measuring 16 mm. No evidence of obstruction. No visualized right renal parenchymal calculi. -Currently hemodynamically stable, T-max 100.8 at 7 PM yesterday PLAN: -Rocephin for antibiotic coverage -Follow blood cultures, follow urine cultures for sensitivity and identification -Repeat blood cultures tomorrow -Repeat CT scan of the abdomen and pelvis Status: Acute (2) Pneumonia: -Patient is currently on room air -COVID-19 testing negative -Patient is a full code, okay with mechanical ventilation if required -Continue azithromycin and Rocephin, oxygen therapy, nebulizer therapy Status: Acute Qualifiers: Laterality: bilateral Lung location: lower lobe of lung Pneumonia type: due to unspecified organism Qualified Code(s): J18.9 - Pneumonia, unspecified organism (3) Diabetes: Low-dose sliding scale Status: Acute (4) Hypertension: Continue home medications Status: Acute (5) Gram-negative bacteremia: Status: Acute Attestations Medical Necessity Statement*: Patient requires hospitalization for gram- negative bacteremia, with acute cystitis, left pyelonephritis Coding Level of Care Code Acute [employer] 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
[2020-01-18 16:28] LABS: Glucose Point of Care 110 mg/dL (70-110)
--- NOTE | 2020-01-18 17:08 | PM.CONSULT ---
Providers/Reason For Consult Consulting Physican/Specialty*: Urology/Yusuf Reason for Consult*: Large left UPJ stone with obstruction and UTI Attending Physician: Jim Walton MD Primary Care Provider: Nemesio Ireland MD History of Present Illness History of Present Illness Mayi Atkins is a 69 year old female first evaluated by me today at the request of Dr. Lopez for obstructing left proximal ureteral stone and face of UTI. White count this morning was 20.7. Urine looked infected on admission. She complained of elevated temperature up to 103.1 prior to admission. She did also have some shortness of breath. Has recently complained of urgency frequency urgency incontinence and apparently had some improvement when she took some antibiotics for that. The symptoms seem to be rather chronic and intermittent. Work-up included a CT scan today that showed a large obstructing stone at the left UPJ with hydronephrosis. With fever, leukocytosis, UTI with obstruction from the stone she is considered an emergency and it was recommended that we go to the operating room tonight for stent placement. I reviewed 2 staged approach to people with obstructive pyelonephritis specifically relieving obstruction, treating the antibiotic and then following up later for more definitive treatment of the stone. I explained the procedure in detail and she has given informed consent to proceed. Review of Systems Const: Reports: fever and malaise Eyes: Denies: change in vision, blurry vision or eye discharge ENMT: Denies: throat pain or painful swallowing Card: Reports: shortness of breath on exertion; Denies: chest pain or palpitations Resp: Reports: shortness of breath; Denies: productive cough, non-productive cough or wheezing GI: Denies: abdominal pain, vomiting or difficulty swallowing : Denies: flank pain or difficulty urinating Musc: Denies: joint swelling or limited range of motion Skin/Breast: Denies: rash or redness Neuro: Denies: confusion, behavioral changes or slurred speech Psych: Denies: anxiety or depression Endo: Denies: excessive thirst or cold intolerance Amish/Lymph: Denies: easy bruising or easy bleeding All/Imm: Denies: hives or throat swelling Meds/Allergies Home Medications and Allergies Home Medications Medication Instructions Recorded Confirmed Last Taken Type One-A-Day Womens Formula 1 tab PO DAILY 01/17/20 01/17/20 01/16/20 History amlodipine-benazepril 1 cap PO DAILY 01/17/20 01/17/20 Unknown History escitalopram oxalate [Lexapro] 10 mg PO DAILY 01/17/20 01/17/20 01/16/20 History hydrochlorothiazide 50 mg PO DAILY 01/17/20 01/17/20 Unknown History levothyroxine 88 mcg PO DAILY 01/17/20 01/17/20 01/16/20 History metformin 1,000 mg PO DAILY 01/17/20 01/17/20 01/16/20 History metoprolol succinate [Toprol XL] 100 mg PO DAILY 01/17/20 01/17/20 01/16/20 History oxycodone-acetaminophen 1 tab PO Q6H PRN 01/17/20 01/17/20 Unknown History Allergies Allergy/AdvReac Type Severity Reaction Status Date / Time No Known Allergies Allergy Verified 01/17/20 07:37 Current Medications Current Medications Generic Name Dose Route Start Last Admin Trade Name Freq PRN Reason Stop Dose Admin Acetaminophen 650 mg 01/17/20 10:58 01/17/20 19:32 Tylenol PO 650 mg Q6H PRN Administration Mild/Mod Pain Or Temp >/= 101 Albuterol Sulfate 2 puff 01/17/20 17:31 01/18/20 13:50 Ventolin INHALATION 2 puff Q4H.RESPIRATORY PRN Administration SHORTNESS OF BREATH Amlodipine Besylate 5 mg 01/18/20 09:00 01/18/20 08:01 Norvasc PO 5 mg DAILY AIME Administration Enoxaparin Sodium 40 mg 01/17/20 15:18 01/17/20 17:55 Lovenox SUBCUT 40 mg Q24H AIME Administration Escitalopram Oxalate 10 mg 01/18/20 09:00 01/18/20 08:01 Lexapro PO 10 mg DAILY AIME Administration Hydrochlorothiazide 25 mg 01/18/20 09:00 01/18/20 08:01 Hctz PO 25 mg DAILY AIME Administration Azithromycin 500 mg/ Sodium 250 mls @ 250 mls/hr 01/18/20 08:30 01/18/20 08:03 Chloride IV 250 mls/hr Q24H AIME Administration Protocol Insulin Aspart 0 unit 01/17/20 15:18 01/18/20 08:30 Novolog SUBCUT 2 unit TIDWM AIME Administration Protocol Levothyroxine Sodium 88 mcg 01/18/20 09:00 01/18/20 08:01 Synthroid PO 88 mcg DAILY AIME Administration Metoprolol Succinate 100 mg 01/18/20 09:00 01/18/20 08:01 Toprol Xl PO 100 mg DAILY AIME Administration Multivitamins Therapeutic 1 tab 01/18/20 09:00 01/18/20 08:01 Multivitamin Tab PO 1 tab DAILY AIME Administration PFSH Acute PFSH: Medical History Chronic back pain Chronic neck pain Diabetes History of osteoarthritis Hypertension Surgical History History of back surgery History of neck surgery Family History Other Diabetes Social History Smoking and tobacco status: former smoker Alcohol intake: never Substance/Drug Use: never Vitals/I&O/Wt Last Vital Signs Temp 98.2 F 01/18/20 15:28 Pulse 81 01/18/20 15:28 Resp 18 01/18/20 15:28 BP 167/90 01/18/20 15:28 Pulse Ox 98 01/18/20 15:28 01/18/20 01/18/20 01/18/20 06:59 14:59 22:59 Intake Total 2089.25 / 3749.25 862.5 / 862.5 Output Total 300 / 300 Balance 2089.25 / 2849.25 562.5 / 562.5 Weight last 48 hrs Weight 260 lb Physical Exam Const: COMMON NORMALS: no apparent distress, alert and well nourished GENERAL APPEARANCE: well kempt and well developed ORIENTATION/CONSCIOUSNESS: not confused HENMT: COMMON NORMALS: normocephalic and head/scalp atraumatic HEAD & SCALP: normocephalic and atraumatic Eye: COMMON NORMALS: conjunctivae normal and no scleral icterus CONJUNCTIVA: Yes conjunctivae normal Neck/C-Spine: COMMON NORMALS: full ROM GENERAL: Yes normal visual inspection Lymph: LYMPHATIC: no lymphadenopathy noted and no lymphedema noted Resp: COMMON NORMALS: normal respiratory effort and clear to auscultation bilaterally EFFORT & INSPECTION: No labored and No actively coughing AUSCULTATION: clear to auscultation bilaterally Cardio: COMMON NORMALS: regular rate, regular rhythm and no murmurs RATE: regular rate RHYTHM: regular rhythm BRUITS: no carotid bruits GI: COMMON NORMALS: soft to palpation AUSCULTATION: Yes normoactive bowel sounds PALPATION: Yes soft and Yes tender RECTAL EXAM: visual inspection normal : COMMON NORMALS: Yes appearance of the vagina normal BLADDER/KIDNEY EXAM: Yes bladder normal to palpation EXTERNAL FEMALE EXAM: Yes normal appearance of the urethra BIMANUAL EXAM - VAGINA & UTERUS: Yes bladder normal to palpation Extremity: COMMON NORMALS: no clubbing, cyanosis or edema Neuro: COMMON NORMALS: no focal motor deficits SENSORIUM/ORIENTATION: Yes alert Psych: COMMON NORMALS: mental status grossly normal and thought process normal APPEARANCE: Yes grossly normal and Yes well kempt ATTITUDE: Yes calm and Yes engaged THOUGHT PROCESS: normal thought process Skin: COMMON NORMALS: no rashes or lesions noted and no jaundice GENERAL SKIN EXAM: no rashes or lesions noted Data Micro: Micro: Microbiology 01/17/20 07:44 Blood Culture - Pr eliminary Blood Gram Negative R ods 01/17/20 08:35 Blood Culture - Pr eliminary Blood Gram Negative R ods 01/17/20 08:35 Urine Culture - Pr eliminary Urine,Clean Catch Gram Negative R ods 01/17/20 08:35 Bacterial Antigens - Final Urine,Voided A&P Assessment and plan (1) Obstruction of left ureteropelvic junction (UPJ) due to stone: Large obstructing left UPJ stone complicated by UTI and leukocytosis, fever, concern for sepsis. To the operating room emergently. Status: Acute (2) Obstructive pyelonephritis: History of recurrent UTIs with chronic symptoms intermittently complicated by diagnosis today of large left UPJ stone with obstruction Status: Acute (3) History of recurrent UTI (urinary tract infection): She reports chronic lower urinary tract symptoms suspicious for chronic cystitis. Improvement in urgency frequency and urgency incontinence on antibiotic therapy. Status: Acute Consult Attestations Medical Necessity Statement: emergency surgery indicated Coding Level of Care Code Acute Resource Economist for [facility] Diagnoses Obstruction of left ureteropelvic junction (UPJ) due to stone N20.1 Obstructive pyelonephritis N11.1 History of recurrent UTI (urinary tract infection) Z87.440
[2020-01-18] MEDS: enoxaparin 40 mg/0.4 mL Syringe SUBCUT (17:29)
[2020-01-18] MEDS: piperacillin-tazobactam 3.375 GM in sodium chloride 0.9% (plus) 50 ML IV (17:40)
--- NOTE | 2020-01-18 17:59 | ANES.PREANE2 ---
Pre-Anesthetic Assessment Pre-Anesthetic Assessment: Height/Weight: Height 1.57 m Weight 117.934 kg Temp Pulse Resp BP Pulse Ox 98.2 F 81 18 167/90 98 01/18/20 15:28 01/18/20 15:28 01/18/20 15:28 01/18/20 15:28 01/18/20 15:28 Proposed Procedure: Operation Date: 01/18/20 17:05 Proposed Procedures p Cystoscopy(Not Applicable) - Jose Yusuf MD s Flexible Ureteroscopy(Not Applicable) - Jose Yusuf MD s Ureteral Stent Placement(Not Applicable) - Jose Yusuf MD Social: Social History: Tobacco (quit) and No alcohol Exam: Pre-Anes Outpt Exam: alert, oriented x 3, clear to auscultation bilaterally and regular rate & rhythm Airway: Submandibular: WNL Cervical ROM: WNL MP: 2 Dentition: False (upper and lower) History/ROS: No significant history except as noted Pulmonary: Pulmonary: GALVEZ and Sleep apnea CV/HEM: CV/HEM: HTN : Comments: stones Hepatic: Hepatic: None reported GI: GI: None reported Metabolic: Metabolic: DM, Hyperlipidemia, Morbid obesity and Thyroid Musc/skel: Musc/skel: Lower Back Pain and OA/DJD Neuropsych: Neuropsych: None reported Anesthetic Plan: ASA status: 3 Anesthesia: Anesthesia Evaluation and General Risk of > 500 ml blood loss (7ml/kg in children): No Meds/Allergies Current Medications: Current Medications Generic Name Dose Route Start Last Admin Trade Name Freq PRN Reason Stop Dose Admin Acetaminophen 650 mg 01/17/20 10:58 01/17/20 19:32 Tylenol PO 650 mg Q6H PRN Administration Mild/Mod Pain Or Temp >/= 101 Albuterol Sulfate 2 puff 01/17/20 17:31 01/18/20 13:50 Ventolin INHALATION 2 puff Q4H.RESPIRATORY P RN Administration SHORTNESS OF BARRIE TH Amlodipine Besylat e 5 mg 01/18/20 09:00 01/18/20 08:01 Norvasc PO 5 mg DAILY AIME Administration Enoxaparin Sodium 40 mg 01/17/20 15:18 01/18/20 17:29 Lovenox SUBCUT 40 mg Q24H AIME Administration Escitalopram Oxala te 10 mg 01/18/20 09:00 01/18/20 08:01 Lexapro PO 10 mg DAILY AIME Administration Hydrochlorothiazid e 25 mg 01/18/20 09:00 01/18/20 08:01 Hctz PO 25 mg DAILY AIME Administration Azithromycin 500 m g/ Sodium 250 mls @ 250 mls /hr 01/18/20 08:30 01/18/20 08:03 Chloride IV 250 mls/hr Q24H AIME Administration Protocol Piperacillin Sod/T azobactam 50 mls @ 12.5 mls /hr 01/18/20 16:00 01/18/20 17:40 Sod 3.375 gm/ So dium Chloride IV 12.5 mls/hr Q8H AIME Administration Protocol Lactated Ringer's 1,000 mls @ 75 ml s/hr 01/18/20 16:00 01/18/20 17:28 Lactated Ringers IV 75 mls/hr .[id number] AIME Administration Insulin Aspart 0 unit 01/17/20 15:18 01/18/20 17:44 Novolog SUBCUT Not Given TIDWM AIME Protocol Levothyroxine Sodi um 88 mcg 01/18/20 09:00 01/18/20 08:01 Synthroid PO 88 mcg DAILY AIME Administration Metoprolol Succina te 100 mg 01/18/20 09:00 01/18/20 08:01 Toprol Xl PO 100 mg DAILY AIME Administration Multivitamins Ther apeutic 1 tab 01/18/20 09:00 01/18/20 08:01 Multivitamin Tab PO 1 tab DAILY AIME Administration PFSH Anesthesia PFSH: Medical History Chronic back pain Chronic neck pain Diabetes History of osteoarthritis Hypertension Surgical History History of back surgery History of neck surgery Family History Other Diabetes Social History Smoking and tobacco status: former smoker Alcohol intake: never Substance/Drug Use: never Data Anesthesia CBC & Chem 7: 01/18/20 04:23 01/18/20 04:23 Other Labs: Laboratory Results - last 48 hr 01/17/20 01/17/20 01/17/20 07:44 07:44 07:44 WBC 15.2 H RBC 4.42 Hgb 13.1 Hct 40.9 MCV 92.5 MCH 29.6 MCHC 32.0 RDW 14.6 Plt Count 229 MPV 10.9 H Neut % (Auto) 85.2 Lymph % (Auto) 6.6 [place] % (Auto) 7.5 Eos % (Auto) 0.1 Baso % (Auto) 0.3 Neut # (Auto) 13.0 H Lymph # (Auto) 1.0 [place] # (Auto) 1.1 H Eos # (Auto) 0.0 Baso # (Auto) 0.0 Nucleated RBC % (auto) 0 Nucleated RBCs # 0.0 Sodium 136 Potassium 3.3 L Chloride 94 L Carbon Dioxide 29 Anion Gap 16.3 BUN 12 Creatinine 1.0 H Glucose 175 H POC Glucose Estimat Average Glucose Hemoglobin A1c Calculated Osmolality 282 L Lactate 1.7 Calcium 10.0 Phosphorus Magnesium Total Bilirubin 0.7 AST 20 ALT 13 Alkaline Phosphatase 74 C-Reactive Protein NT-Pro-B Natriuret Pep Total Protein 7.9 Albumin 4.3 Globulin 3.6 Triglycerides Cholesterol LDL Cholesterol, Calc HDL Cholesterol LDL/HDL Ratio Cholesterol/HDL Ratio Procalcitonin Urine Color Urine Appearance Urine pH Ur Specific [place] Urine Protein Urine Glucose (UA) Urine Ketones Urine Blood Urine Nitrate Urine Bilirubin Urine Urobilinogen Ur Leukocyte Esterase Urine RBC Urine WBC Ur Squamous Epith Cells Urine Bacteria Nasal/Oral COVID-19 PCR Influenza Type A Ag Influenza Type B Ag 01/17/20 01/17/20 01/17/20 07:55 07:58 07:58 WBC RBC Hgb Hct MCV MCH MCHC RDW Plt Count MPV Neut % (Auto) Lymph % (Auto) [place] % (Auto) Eos % (Auto) Baso % (Auto) Neut # (Auto) Lymph # (Auto) [place] # (Auto) Eos # (Auto) Baso # (Auto) Nucleated RBC % (auto) Nucleated RBCs # Sodium Potassium Chloride Carbon Dioxide Anion Gap BUN Creatinine Glucose POC Glucose Estimat Average Glucose 166 Hemoglobin A1c 7.4 H Calculated Osmolality Lactate Calcium Phosphorus Magnesium Total Bilirubin AST ALT Alkaline Phosphatase C-Reactive Protein 133.6 H NT-Pro-B Natriuret Pep 578 H Total Protein Albumin Globulin Triglycerides Cholesterol LDL Cholesterol, Calc HDL Cholesterol LDL/HDL Ratio Cholesterol/HDL Ratio Procalcitonin 3.41 H Urine Color Urine Appearance Urine pH Ur Specific [place] Urine Protein Urine Glucose (UA) Urine Ketones Urine Blood Urine Nitrate Urine Bilirubin Urine Urobilinogen Ur Leukocyte Esterase Urine RBC Urine WBC Ur Squamous Epith Cells Urine Bacteria Nasal/Oral COVID-19 PCR Influenza Type A Ag Influenza Type B Ag 01/17/20 01/17/20 01/17/20 08:35 09:22 09:54 WBC RBC Hgb Hct MCV MCH MCHC RDW Plt Count MPV Neut % (Auto) Lymph % (Auto) [place] % (Auto) Eos % (Auto) Baso % (Auto) Neut # (Auto) Lymph # (Auto) [place] # (Auto) Eos # (Auto) Baso # (Auto) Nucleated RBC % (auto) Nucleated RBCs # Sodium Potassium Chloride Carbon Dioxide Anion Gap BUN Creatinine Glucose POC Glucose Estimat Average Glucose Hemoglobin A1c Calculated Osmolality Lactate Calcium Phosphorus Magnesium Total Bilirubin AST ALT Alkaline Phosphatase C-Reactive Protein NT-Pro-B Natriuret Pep Total Protein Albumin Globulin Triglycerides Cholesterol LDL Cholesterol, Calc HDL Cholesterol LDL/HDL Ratio Cholesterol/HDL Ratio Procalcitonin Urine Color Yellow Urine Appearance Hazy A Urine pH 5 Ur Specific [place] 1.010 Urine Protein 1+ H Urine Glucose (UA) Norm Urine Ketones Negative Urine Blood 3+ H Urine Nitrate Negative Urine Bilirubin Neg Urine Urobilinogen Norm Ur Leukocyte Esterase 2+ H Urine RBC 0-4 H Urine WBC >100 H Ur Squamous Epith Cells None Urine Bacteria 1+ H Nasal/Oral COVID-19 PCR See comment Influenza Type A Ag Negative Influenza Type B Ag Negative 01/17/20 01/17/20 01/17/20 11:55 17:51 20:03 WBC RBC Hgb Hct MCV MCH MCHC RDW Plt Count MPV Neut % (Auto) Lymph % (Auto) [place] % (Auto) Eos % (Auto) Baso % (Auto) Neut # (Auto) Lymph # (Auto) [place] # (Auto) Eos # (Auto) Baso # (Auto) Nucleated RBC % (auto) Nucleated RBCs # Sodium Potassium Chloride Carbon Dioxide Anion Gap BUN Creatinine Glucose POC Glucose 131 150 168 Estimat Average Glucose Hemoglobin A1c Calculated Osmolality Lactate Calcium Phosphorus Magnesium Total Bilirubin AST ALT Alkaline Phosphatase C-Reactive Protein NT-Pro-B Natriuret Pep Total Protein Albumin Globulin Triglycerides Cholesterol LDL Cholesterol, Calc HDL Cholesterol LDL/HDL Ratio Cholesterol/HDL Ratio Procalcitonin Urine Color Urine Appearance Urine pH Ur Specific [place] Urine Protein Urine Glucose (UA) Urine Ketones Urine Blood Urine Nitrate Urine Bilirubin Urine Urobilinogen Ur Leukocyte Esterase Urine RBC Urine WBC Ur Squamous Epith Cells Urine Bacteria Nasal/Oral COVID-19 PCR Influenza Type A Ag Influenza Type B Ag 01/18/20 01/18/20 01/18/20 04:23 04:23 04:23 WBC 20.6 H RBC 3.80 L Hgb 11.1 L Hct 35.0 L MCV 92.1 MCH 29.2 MCHC 31.7 RDW 14.6 Plt Count 223 MPV 11.4 H Neut % (Auto) 85.8 Lymph % (Auto) 5.5 [place] % (Auto) 7.9 Eos % (Auto) 0.0 Baso % (Auto) 0.2 Neut # (Auto) 17.7 H Lymph # (Auto) 1.1 [place] # (Auto) 1.6 H Eos # (Auto) 0.0 Baso # (Auto) 0.0 Nucleated RBC % (auto) 0 Nucleated RBCs # 0.0 Sodium 139 Potassium 2.7 L* Chloride 97 L Carbon Dioxide 28 Anion Gap 16.7 BUN 10 Creatinine 0.9 Glucose 180 H POC Glucose Estimat Average Glucose Hemoglobin A1c Calculated Osmolality 289 Lactate Calcium 9.7 Phosphorus 1.6 L Magnesium 1.7 Total Bilirubin 0.6 AST 25 ALT 15 Alkaline Phosphatase 70 C-Reactive Protein NT-Pro-B Natriuret Pep Total Protein 7.6 Albumin 3.5 Globulin 4.1 Triglycerides Cholesterol LDL Cholesterol, Calc HDL Cholesterol LDL/HDL Ratio Cholesterol/HDL Ratio Procalcitonin Urine Color Urine Appearance Urine pH Ur Specific [place] Urine Protein Urine Glucose (UA) Urine Ketones Urine Blood Urine Nitrate Urine Bilirubin Urine Urobilinogen Ur Leukocyte Esterase Urine RBC Urine WBC Ur Squamous Epith Cells Urine Bacteria Nasal/Oral COVID-19 PCR Influenza Type A Ag Influenza Type B Ag 01/18/20 01/18/20 01/18/20 04:23 08:23 12:17 WBC RBC Hgb Hct MCV MCH MCHC RDW Plt Count MPV Neut % (Auto) Lymph % (Auto) [place] % (Auto) Eos % (Auto) Baso % (Auto) Neut # (Auto) Lymph # (Auto) [place] # (Auto) Eos # (Auto) Baso # (Auto) Nucleated RBC % (auto) Nucleated RBCs # Sodium Potassium Chloride Carbon Dioxide Anion Gap BUN Creatinine Glucose POC Glucose 148 89 Estimat Average Glucose Hemoglobin A1c Calculated Osmolality Lactate Calcium Phosphorus Magnesium Total Bilirubin AST ALT Alkaline Phosphatase C-Reactive Protein NT-Pro-B Natriuret Pep Total Protein Albumin Globulin Triglycerides 108 Cholesterol 176 LDL Cholesterol, Calc 99 HDL Cholesterol 55 L LDL/HDL Ratio 1.80 Cholesterol/HDL Ratio 3.20 Procalcitonin Urine Color Urine Appearance Urine pH Ur Specific [place] Urine Protein Urine Glucose (UA) Urine Ketones Urine Blood Urine Nitrate Urine Bilirubin Urine Urobilinogen Ur Leukocyte Esterase Urine RBC Urine WBC Ur Squamous Epith Cells Urine Bacteria Nasal/Oral COVID-19 PCR Influenza Type A Ag Influenza Type B Ag 01/18/20 16:25 WBC RBC Hgb Hct MCV MCH MCHC RDW Plt Count MPV Neut % (Auto) Lymph % (Auto) [place] % (Auto) Eos % (Auto) Baso % (Auto) Neut # (Auto) Lymph # (Auto) [place] # (Auto) Eos # (Auto) Baso # (Auto) Nucleated RBC % (auto) Nucleated RBCs # Sodium Potassium Chloride Carbon Dioxide Anion Gap BUN Creatinine Glucose POC Glucose 110 Estimat Average Glucose Hemoglobin A1c Calculated Osmolality Lactate Calcium Phosphorus Magnesium Total Bilirubin AST ALT Alkaline Phosphatase C-Reactive Protein NT-Pro-B Natriuret Pep Total Protein Albumin Globulin Triglycerides Cholesterol LDL Cholesterol, Calc HDL Cholesterol LDL/HDL Ratio Cholesterol/HDL Ratio Procalcitonin Urine Color Urine Appearance Urine pH Ur Specific [place] Urine Protein Urine Glucose (UA) Urine Ketones Urine Blood Urine Nitrate Urine Bilirubin Urine Urobilinogen Ur Leukocyte Esterase Urine RBC Urine WBC Ur Squamous Epith Cells Urine Bacteria Nasal/Oral COVID-19 PCR Influenza Type A Ag Influenza Type B Ag Micro: Microbiology 01/17/20 07:44 Blood Culture - Preliminary Blood Gram Negative Rods 01/17/20 08:35 Blood Culture - Preliminary Blood Gram Negative Rods 01/17/20 08:35 Urine Culture - Preliminary Urine,Clean Catch Gram Negative Rods 01/17/20 08:35 Bacterial Antigens - Final Urine,Voided Cardiac Studies: No Data to Display
--- NOTE | 2020-01-18 18:38 | PM.OP ---
Operative Report Date of procedure: January 18, 2020 Pre-op Diagnosis: Obstructing left UPJ stone with UTI leukocytosis and concern for sepsis. Post-op Diagnosis: Same Procedure Done: Cystoscopy, left ureteral stent placement. Implants: Left ureteral stent Pathology: none sent Surgeon: Madelin Anesthesia: General Estimated blood loss: Minimal Urine output: Not measured Complications: None Findings: 1. Diffuse chronic cystitis cystica 2. Stone in the left UPJ area easily bypassed with wire and stent. Purulent drainage from the stent Condition: stable Disposition: PACU Brief History: Mayi is a very pleasant 69-year-old white female who I saw for the first time sherri is a patient at the request of Dr. Walton. She was found to have a urinary tract infection, significant leukocytosis, and discovery of a large left UPJ stone with obstruction on CT scan today. Not a lot of symptoms other than more systemic weakness. No hemodynamic instability but the concern for potential of progression of obstructive pyelonephritis to sepsis was enough to recommend emergency stent placement sherri. Procedure: After emergent evaluation examination and obtaining of informed consent she was taken to the operating suite on 01/18/2020 where general anesthesia was administered without difficulty. Prepped and draped in the usual sterile fashion in dorsolithotomy position paying careful attention to avoiding pressure points. 21 Portuguese cystoscope with 30 degree lens was introduced into the urethral meatus and advanced into the bladder under videoscopy. The bladder showed diffuse chronic cystitis cystica throughout the bladder. The left ureteral orifice was easily identified and a flexible tip guidewire was easily advanced up the left ureter bypassing the large stone at the UPJ and curling in the upper pole calyx. A 6 Portuguese by 26 cm double-pigtail stent was advanced over the guidewire through the cystoscope into appropriate position as confirmed via fluoroscopy and cystoscopy. Purulent drainage was noted. Bladder was drained and the procedure completed. She tolerated procedure well without complications and was awakened in the operating room and returned to the recovery room in stable condition with anticipation of transfer to second floor. She remained hemodynamically stable throughout the procedure. PLANS: 1. Maintain stent until she has recovered well from the infection and the stone is definitively treated. We will plan on endoscopic or ESWL approach for that stone.
[2020-01-18 21:00] LABS: Glucose Point of Care 132 mg/dL (70-110)
[2020-01-19] VITALS (8 sets, daily range): BP systolic 127–180; BP diastolic 68–82; PULSE 71–91; RESP 16–18; TEMP 36.7–37.2; O2SAT 94–100
[2020-01-19] MEDS: piperacillin-tazobactam 3.375 GM in sodium chloride 0.9% (plus) 50 ML IV ×3 (00:59→17:07)
--- NOTE | 2020-01-19 05:20 | PC.NURSE ---
Pt had a pain free night. Only c/o frequency and urgency with urination, now needing bedside commode. Urine is also noted to be yellow, cloudy, and blood tinged. Pt son would like to be apprised of mothers condition and plan of care when Yusuf makes rounds this morning via telephone.
[2020-01-19 06:20] LABS: Basophils % 0.2 %; Eosinophils # 0.1 10^3/uL (0.0-0.8); Hematocrit 37.8 % (37.0-47.0); Hemoglobin 12.1 g/dL (11.5-15.3); Lymphocytes # 2.4 10^3/uL (0.8-4.8); Lymphocytes % 17.9 %; Mean Corpuscular Hemoglobin 29.7 pg (28.0-34.0); Mean Corpuscular Volume 92.9 fL (81-99); Mean Platelet Volume 11.5 fL (7.4-10.4); Monocytes # 1.2 10^3/uL (0.2-0.9); Monocytes % 9.2 %; Neutrophils # 9.5 10^3/uL (1.8-7.7); Neutrophils % 71.4 %; Nucleated Red Blood Cells % 0 %; Platelet Count 222 10^3/cmm (130-400); Red Blood Count 4.07 10^6/uL (4.1-5.3); Red Cell Distribution Width 14.6 % (12.1-15.1); White Blood Count 13.2 10^3/uL (4.0-10.0)
[2020-01-19 06:34] LABS: Alanine Aminotransferase 21 U/L (0-33); Albumin Level 3.6 g/dL (3.5-5.2); Alkaline Phosphatase 69 IU/L (35-105); Aspartate Amino Transferase 34 U/L (0-32); Blood Urea Nitrogen 12 mg/dL (8-23); Calcium 9.4 mg/dL (8.5-10.5); Carbon Dioxide 32 mmol/L (22-29); Chloride 99 mmol/L (98-107); Globulin 3.9 g/dL (1.3-4.6); Glucose 129 mg/dL (65-115); Osmolality Calculated 294 mOsm/kg (285-295); Sodium 143 mmol/L (136-145); Total Bilirubin 0.6 mg/dL (0.15-1.2); Total Protein 7.5 g/dL (6.6-8.7)
[2020-01-19 06:44] LABS: Magnesium 1.9 mg/dL (1.7-2.3); Phosphorus 2.2 mg/dL (2.5-4.5)
[2020-01-19 06:49] LABS: Glucose Point of Care 127 mg/dL (70-110)
--- NOTE | 2020-01-19 07:38 | P.PN_ITS ---
Subjective Subjective: Interval history: Postoperative day #1 left ureteral stent placement for obstructive pyelonephritis. Has remained afebrile overnight. Feeling better. No chest pain or shortness of breath. No mental status changes. Symptoms include urgency frequency and urgency incontinence. This certainly represents chronic cystitis as well as added irritation from the stent. White count has decreased from 20-13. Clinical picture shows no evidence of septic progression. Reviewed intraoperative findings, need for PROLONGED ANTIBIOTICS due to the CHRONIC CYSTITIS CYSTICA. Urine culture is still pending. Continue IV antibiotics. She will need a follow-up in my office in preparation for treatment of the left proximal/UPJ stone after recovery from infection. I anticipate that that treatment will be ESWL. Medications: Reviewed: Yes Vitals/I&O/Wt Last Vital Signs Temp 98.2 F 01/19/20 07:05 Pulse 81 01/19/20 07:05 Resp 16 01/19/20 07:05 BP 157/70 01/19/20 07:05 Pulse Ox 95 01/19/20 07:05 01/18/20 01/19/20 01/19/20 22:59 06:59 14:59 Intake Total 50 / 912.5 Output Total 0 / 300 200 / 500 Balance 50 / 612.5 -200 / 412.5 Physical Exam Const: COMMON NORMALS: no apparent distress, alert and well nourished GENERAL APPEARANCE: well kempt and well developed ORIENTATION/CONSCIOUSNESS: not confused HENMT: COMMON NORMALS: normocephalic and head/scalp atraumatic HEAD & SCAL P: normocephalic and atraumatic Neck/C-Spine: GENERAL: Yes normal visual inspection Resp: COMMON NORMALS: normal respiratory effort EFFORT & INSPECTION: No labored and No actively coughing Neuro: SENSORIUM/ORIENTATION: Yes alert Psych: COMMON NORMALS: mental status grossly normal APPEARANCE: Yes grossly normal and Yes well kempt ATTITUDE: Yes calm and Yes engaged Data : 01/19/20 05:22 01/19/20 05:22 Micro: Microbiology 01/19/20 05:22 Blood Culture - Preliminary Blood SPECIMEN COLLECTED 01/19/20 05:22 Blood Culture - Preliminary Blood SPECIMEN COLLECTED 01/17/20 08:35 Blood Culture - Preliminary Blood Gram Negative Rods 01/17/20 07:44 Blood Culture - Preliminary Blood Gram Negative Rods 01/17/20 08:35 Urine Culture - Preliminary Urine,Clean Catch Gram Negative Rods A&P Assessment and plan (1) Obstructive pyelonephritis: Clinically improving after emergency stenting. Continue IV antibiotics until safe for conversion to oral antibiotics and continue oral antibiotics at home. Status: Acute (2) Cystitis cystica: Severe chronic cystitis cystica identified on cystoscopy at time of emergency stent placement. She will need prolonged antibiotics. Status: Acute (3) Obstruction of left ureteropelvic junction (UPJ) due to stone: Large left UPJ stone causing obstruction in the face of infection. Status: Acute Attestations Medical Necessity Statement*: See attending Coding Level of Care Code Acute [place] [employer] Supervisor for [facility] Diagnoses Obstructive pyelonephritis N11.1 Cystitis cystica N30.80 Obstruction of left ureteropelvic junction (UPJ) due to stone N20.1
[2020-01-19] MEDS: azithromycin 500 MG in sodium chloride 0.9% 250 ML 250 MG IV (08:23)
[2020-01-19] MEDS: amlodipine 5 mg Tablet PO (08:26)
[2020-01-19] MEDS: levothyroxine 88 mcg Tablet PO (08:26)
[2020-01-19] MEDS: escitalopram 10 mg Tablet PO (08:26)
[2020-01-19] MEDS: metoprolol succinate ER (24 HR) 100 mg Tablet PO (08:26)
[2020-01-19] MEDS: multivitamin therapeutic Tablet 1 TAB PO (08:26)
[2020-01-19] MEDS: sodium chloride 0.9% (100 ml) 100 ML 25 ML (09:47)
--- NOTE | 2020-01-19 13:59 | P.PN_ITS ---
Subjective Subjective: Interval history: Patient this morning states that she is doing fine, no fevers, no chills, no nausea, no vomiting, she had a ureteral stent placed by Dr. Yusuf yesterday evening, currently is doing well Medications: Reviewed: Yes Vitals/I&O/Wt Last Vital Signs Temp 98.2 F 01/19/20 11:26 Pulse 91 01/19/20 13:47 Resp 18 01/19/20 13:47 BP 156/79 01/19/20 11:26 Pulse Ox 95 01/19/20 13:47 01/18/20 01/19/20 01/19/20 22:59 06:59 14:59 Intake Total 50 / 1162.5 50 / 1212.5 440 / 440 Output Total 0 / 300 200 / 500 600 / 600 Balance 50 / 862.5 -150 / 712.5 -160 / -160 Physical Exam Const: COMMON NORMALS: no apparent distress and oriented x3 GENERAL A PPEARANCE: cooperative and comfortable HENMT: COMMON NORMALS: normocephalic HEAD & SCALP: normocephalic Neck/C-Spine: COMMON NORMALS: no JVD Lymph: LYMPHATIC: no lymphadenopathy noted Resp: COMMON NORMALS: normal respiratory effort, no retractions, no use of accessory muscles and clear to auscultation bilaterally AUSCULTATION: clear to auscultation bilaterally Cardio: COMMON NORMALS: no JVD, regular rate, regular rhythm, S1 normal heart sound, S2 normal heart sound, no gallops, no clicks and no murmurs RATE: regular rate RHYTHM: regular rhythm HEART SOUNDS: S1 normal and S2 normal GI: COMMON NORMALS: normal to inspection, nondistended, normoactive bowel sounds, soft to palpation, non-tender, no hepatosplenomegaly, no masses and no bruits PALPATION: Yes soft and Yes no hepatosplenomegaly Extremity: COMMON NORMALS: normal to inspection, full ROM, normal capillary refill, no clubbing, cyanosis or edema, no calf tenderness and no pedal edema Neuro: COMMON NORMALS: oriented x3 Data : 01/19/20 05:22 01/19/20 05:22 Micro: Microbiology 01/17/20 08:35 Urine Culture - Final Urine,Clean Catch Escherichia coli 01/19/20 05:22 Blood Culture - Preliminary Blood SPECIMEN COLLECTED 01/19/20 05:22 Blood Culture - Preliminary Blood SPECIMEN COLLECTED 01/17/20 08:35 Blood Culture - Preliminary Blood Gram Negative Rods 01/17/20 07:44 Blood Culture - Preliminary Blood Gram Negative Rods A&P Assessment and plan (1) Obstructive pyelonephritis: -Secondary to large left UPJ stone, with cystitis, pyelonephritis -Status post cystoscopy, left ureteral stent placement postop day 1 found to have diffuse chronic cystitis cystica, stone in the left UPJ, -Gram-negative bacteremia, gram-negative UTI -White blood cell count has trended down to 13,000, afebrile for the last 48 hours, normotensive Plan: -Continue broad-spectrum antibiotics until identification, de-escalate after susceptibilities are reached -Discharged on 14 days of oral antibiotics, followed by chronic suppressive antibiotics for chronic cystitis, follow-up with Dr. Yusuf February 03 for c onsideration of lithotripsy and stent removal Status: Acute (2) Obstruction of left ureteropelvic junction (UPJ) due to stone: Status: Acute (3) Acute cystitis with hematuria: Status: Deleted (4) Pneumonia: -Patient is currently on room air -COVID-19 testing negative -Patient is a full code, okay with mechanical ventilation if required -Stop azithromycin Status: Acute Qualifiers: Laterality: bilateral Lung location: lower lobe of lung Pneumonia type: due to unspecified organism Qualified Code(s): J18.9 - Pneumonia, unspecified organism (5) Diabetes: Low-dose sliding scale Status: Acute (6) Hypertension: Continue home medications Status: Acute (7) Gram-negative bacteremia: Status: Acute Attestations Medical Necessity Statement*: Patient requires continued hospitalization due to left obstructive pyelonephritis, gram-negative bacteremia, left UPJ stone status post stent placement Coding Level of Care Code Acute [employer] Operator for [facility] Diagnoses Obstructive pyelonephritis N11.1 Obstruction of left ureteropelvic junction (UPJ) due to stone N20.1 Acute cystitis with hematuria N30.01 Pneumonia J18.9 Laterality: bilateral Lung location: lower lobe of lung Pneumonia type: due to unspecified organism Diabetes E11.9 Hypertension I10 Gram-negative bacteremia R78.81
[2020-01-19 14:18] LABS: Glucose Point of Care 154 mg/dL (70-110)
[2020-01-19 16:38] LABS: Glucose Point of Care 126 mg/dL (70-110)
[2020-01-19] MEDS: enoxaparin 40 mg/0.4 mL Syringe SUBCUT (17:07)
[2020-01-19 20:57] LABS: Glucose Point of Care 158 mg/dL (70-110)
[2020-01-20] VITALS: BP 159/70; PULSE 74; RESP 18; TEMP 36.7; O2SAT 99
[2020-01-20] MEDS: acetaminophen 325 mg Tablet 650 MG PO (00:11)
[2020-01-20] MEDS: piperacillin-tazobactam 3.375 GM in sodium chloride 0.9% (plus) 50 ML IV (02:25)
[2020-01-20 04:00] VITALS: BP 136/67; PULSE 63; RESP 20; TEMP 36.8; O2SAT 99
[2020-01-20 05:51] LABS: Basophils % 0.2 %; Eosinophils # 0.2 10^3/uL (0.0-0.8); Eosinophils % 2.4 %; Hemoglobin 11.5 g/dL (11.5-15.3); Lymphocytes # 2.3 10^3/uL (0.8-4.8); Lymphocytes % 24.3 %; Mean Corpuscular HGB Conc 31.9 g/dL (30.0-36.0); Mean Corpuscular Hemoglobin 29.8 pg (28.0-34.0); Mean Corpuscular Volume 93.3 fL (81-99); Mean Platelet Volume 11.1 fL (7.4-10.4); Monocytes # 0.9 10^3/uL (0.2-0.9); Monocytes % 9.3 %; Neutrophils # 5.9 10^3/uL (1.8-7.7); Neutrophils % 63.5 %; Nucleated Red Blood Cells % 0 %; Platelet Count 228 10^3/cmm (130-400); Red Blood Count 3.86 10^6/uL (4.1-5.3); Red Cell Distribution Width 14.6 % (12.1-15.1); White Blood Count 9.3 10^3/uL (4.0-10.0)
[2020-01-20 06:08] LABS: Alanine Aminotransferase 31 U/L (0-33); Albumin Level 3.2 g/dL (3.5-5.2); Alkaline Phosphatase 64 IU/L (35-105); Aspartate Amino Transferase 37 U/L (0-32); Blood Urea Nitrogen 14 mg/dL (8-23); Calcium 9.8 mg/dL (8.5-10.5); Carbon Dioxide 32 mmol/L (22-29); Chloride 100 mmol/L (98-107); Glucose 148 mg/dL (65-115); Osmolality Calculated 295 mOsm/kg (285-295); Sodium 143 mmol/L (136-145); Total Bilirubin 0.4 mg/dL (0.15-1.2); Total Protein 7.2 g/dL (6.6-8.7)
[2020-01-20 06:14] LABS: Magnesium 1.7 mg/dL (1.7-2.3)
[2020-01-20 06:42] LABS: Glucose Point of Care 171 mg/dL (70-110)
[2020-01-20 07:54] VITALS: BP 175/76; PULSE 63; PULSE 66; RESP 16; RESP 20; TEMP 36.9; O2SAT 95; O2SAT 97
[2020-01-20] MEDS: potassium chloride premix 40 MEQ/100 ML PREMIX 25 MEQ IV (08:50)
--- NOTE | 2020-01-20 08:55 | PM.PN ---
Subjective Subjective: Interval history: Continues to improve. Denies any significant renal colic, fever, chills or increasing malaise. Still with urgency and frequency. Some left sided pain with voiding. But it is very tolerable. Denies shortness of breath, chest pain, change in bowel habits mental status changes etc. She asked about some bumps on my back which on exam appeared to be minor skin irritation. Nothing significant. Current plan is for her to be discharged today. I reviewed with Dr. Walton the importance of continued antibiotics based on the cystitis cystica after therapeutic treatment for obstructive pyelonephritis. I will plan on seeing her back on 02/01/2020 with a KUB to make more definitive plans, potentially ESWL the following Tuesday. Medications: Reviewed: Yes Vitals/I&O/Wt Last Vital Signs Temp 98.4 F 01/20/20 07:54 Pulse 66 01/20/20 07:54 Resp 16 01/20/20 07:54 BP 175/76 01/20/20 07:54 Pulse Ox 95 01/20/20 07:54 01/19/20 01/20/20 01/20/20 22:59 06:59 14:59 Intake Total 272 / 762 290 / 1052 Output Total 200 / 800 200 / 1000 Balance 72 / -38 90 / 52 Physical Exam Const: COMMON NORMALS: no apparent distress, alert and well nourished GENERAL APPEARANCE: well kempt and well developed ORIENTATION/CONSCIOUSNESS: not confused HENMT: COMMON NORMALS: normocephalic and head/scalp atraumatic HEAD & SCALP: normocephalic and atraumatic Neck/C-Spine: COMMON NORMALS: full ROM GENERAL: Yes normal visual inspection Resp: COMMON NORMALS: normal respiratory effort EFFORT & INSPECTION: No labored and No actively coughing Neuro: SENSORIUM/ORIENTATION: Yes alert Psych: COMMON NORMALS: mental status grossly normal APPEARANCE: Yes grossly normal and Yes well kempt ATTITUDE: Yes calm and Yes engaged Data : 01/20/20 05:37 01/20/20 05:37 Micro: Microbiology 01/19/20 05:22 Blood Culture - Preliminary Blood NEGATIVE TO DATE 01/19/20 05:22 Blood Culture - Preliminary Blood NEGATIVE TO DATE 01/17/20 08:35 Urine Culture - Final Urine,Clean Catch Escherichia coli A&P Assessment and plan (1) History of recurrent UTI (urinary tract infection): Preceded obstructive pyelonephritis. Later determined to be cystitis cystica at time of emergency stent placement Status: Acute (2) Obstruction of left ureteropelvic junction (UPJ) due to stone: Large left UPJ stone causing obstruction. Emergency stenting for obstructive pyelonephritis. Follow-up in a couple weeks for planning for definitive treatment. Status: Acute (3) Cystitis cystica: Status: Acute (4) Obstructive pyelonephritis: Status: Acute Attestations Medical Necessity Statement*: See attending Coding Level of Care Code Acute Container Washer Machine for Chg Fwd Diagnoses History of recurrent UTI (urinary tract infection) Z87.440 Obstruction of left ureteropelvic junction (UPJ) due to stone N20.1 Cystitis cystica N30.80 Obstructive pyelonephritis N11.1
[2020-01-20] MEDS: metoprolol succinate ER (24 HR) 100 mg Tablet PO (08:57)
[2020-01-20] MEDS: hydroCHLOROthiazide 25 mg Tablet PO (08:57)
[2020-01-20] MEDS: escitalopram 10 mg Tablet PO (08:57)
[2020-01-20] MEDS: levothyroxine 88 mcg Tablet PO (08:57)
[2020-01-20] MEDS: amlodipine 5 mg Tablet PO (08:57)
[2020-01-20] MEDS: multivitamin therapeutic Tablet 1 TAB PO (08:57)
[2020-01-20] MEDS: levoFLOXacin 750 mg Tablet PO (10:00)
--- NOTE | 2020-01-20 10:36 | P.DS_ITS ---
Discharge Providers Date of Admission: 01/17/20 10:04 Date of Discharge: January 20, 2020 Attending Provider at Admission: Jim Walton MD Attending Provider at Discharge: Jim Walton MD Primary Care Provider: Nemesio Ireland MD Diagnoses at Discharge Discharge Diagnosis (1) History of recurrent UTI (urinary tract infection): Status: Acute (2) Obstruction of left ureteropelvic junction (UPJ) due to stone: Status: Acute (3) Cystitis cystica: Status: Acute (4) Obstructive pyelonephritis: Status: Acute Reason for Visit Reason for Visit: Reason For Visit: PNEUMONIA, CYSTITIS Hospital Course Discharge Summary: This is a 69-year-old female with a past medical history of type 2 diabetes mellitus, hypertension, obesity who presents to the emergency room due to complaints of fevers and confusion. Patient was admitted to [facility] for fevers and confusion secondary to obstructive pyelonephritis and gram-negative bacteremia; she was found to have a large left UPJ stone with cystitis and pyelonephritis and gram-negative bacteremia. She was treated with broad-spectrum antibiotics, Dr. Yusuf from urology was consulted, patient had a left ureteral stent placed, cystoscopy. Postop findings were left UPJ stone, chronic cystitis cystica. Patient clinically did well, her urine cultures and blood cultures were positive for pansensitive E. coli. Patient was discharged on 13 remaining days of oral Levaquin, followed by [facility] for chronic cystitis, patient has a follow-up with Dr. Yusuf on January 31 for consideration for lithotripsy. On admission, there was also concern for pneumonia, patient's Covid 19 testing was negative, patient had no significant respiratory complaints, did not require any oxygen, antibiotics as above should cover for respiratory tract infection. Physical Exam Const: COMMON NORMALS: no apparent distress and oriented x3 GENERAL APPEARANCE: cooperative and comfortable HENMT: COMMON NORMALS: normocephalic HEAD & SCALP: normocephalic Neck/C-Spine: COMMON NORMALS: no JVD Lymph: LYMPHATIC: no lymphadenopathy noted Resp: COMMON NORMALS: normal respiratory effort, no retractions, no use of accessory muscles and clear to auscultation bilaterally AUSCULTATION: clear to auscultation bilaterally Cardio: COMMON NORMALS: no JVD, regular rate, regular rhythm, S1 normal heart sound, S2 normal heart sound, no gallops, no clicks and no murmurs RATE: regular rate RHYTHM: regular rhythm HEART SOUNDS: S1 normal and S2 normal GI: COMMON NORMALS: normal to inspection, nondistended, normoactive bowel sounds, soft to palpation, non-tender, no hepatosplenomegaly, no masses and no bruits PALPATION: Yes soft and Yes no hepatosplenomegaly Extremity: COMMON NORMALS: normal to inspection, full ROM, normal capillary refill, no clubbing, cyanosis or edema, no calf tenderness and no pedal edema Neuro: COMMON NORMALS: oriented x3 Psych: COMMON NORMALS: mental status grossly normal, thought process normal and cooperative THOUGHT PROCESS: normal thought process Discharge Data 2 Data Completed and Pending: Completed Studies During Hospitalization Category Date Time Status CT abdomen pelvis wo con [id number] Rout ine Cat Scan 01/18/20 13:00 Completed XR chest 1V edmund ble [id number] Urgent Exams 01/17/20 07:44 Completed Pending at discharge Category Date Time Status C-arm FL for Urol ogy Routine Exams 01/18/20 18:44 Taken Blood Culture AM LABS Lab 01/19/20 05:22 Results Blood Culture Sta t Lab 01/17/20 08:35 Results Complete Blood Co unt w/Auto AM LABS Lab 01/21/20 04:00 Ordered Comprehensive Met abolic Panel AM LA BS Lab 01/21/20 04:00 Ordered Sputum Culture an d Gram Stain Stat Lab 01/17/20 15:18 Uncollected Labs from last 24 hours 01/20/20 01/20/20 01/20/20 06:33 05:37 05:37 WBC 9.3 RBC 3.86 L Hgb 11.5 Hct 36.0 L MCV 93.3 MCH 29.8 MCHC 31.9 RDW 14.6 Plt Count 228 MPV 11.1 H Neut % (Auto) 63.5 Lymph % (Auto) 24.3 [place] % (Auto) 9.3 Eos % (Auto) 2.4 Baso % (Auto) 0.2 Neut # (Auto) 5.9 Lymph # (Auto) 2.3 [place] # (Auto) 0.9 Eos # (Auto) 0.2 Baso # (Auto) 0.0 Nucleated RBC % (a uto) 0 Nucleated RBCs # 0.0 Sodium 143 Potassium 3.0 L Chloride 100 Carbon Dioxide 32 H Anion Gap 14.0 BUN 14 Creatinine 0.7 Glucose 148 H POC Glucose 171 Calculated Osmolal ity 295 Calcium 9.8 Phosphorus Magnesium Total Bilirubin 0.4 AST 37 H ALT 31 Alkaline Phosphata se 64 Total Protein 7.2 Albumin 3.2 L Globulin 4.0 01/20/20 01/19/20 01/19/20 05:37 20:46 16:33 WBC RBC Hgb Hct MCV MCH MCHC RDW Plt Count MPV Neut % (Auto) Lymph % (Auto) [place] % (Auto) Eos % (Auto) Baso % (Auto) Neut # (Auto) Lymph # (Auto) [place] # (Auto) Eos # (Auto) Baso # (Auto) Nucleated RBC % (a uto) Nucleated RBCs # Sodium Potassium Chloride Carbon Dioxide Anion Gap BUN Creatinine Glucose POC Glucose 158 126 Calculated Osmolal ity Calcium Phosphorus 4.0 Magnesium 1.7 Total Bilirubin AST ALT Alkaline Phosphata se Total Protein Albumin Globulin 01/19/20 11:21 WBC RBC Hgb Hct MCV MCH MCHC RDW Plt Count MPV Neut % (Auto) Lymph % (Auto) [place] % (Auto) Eos % (Auto) Baso % (Auto) Neut # (Auto) Lymph # (Auto) [place] # (Auto) Eos # (Auto) Baso # (Auto) Nucleated RBC % (a uto) Nucleated RBCs # Sodium Potassium Chloride Carbon Dioxide Anion Gap BUN Creatinine Glucose POC Glucose 154 Calculated Osmolal ity Calcium Phosphorus Magnesium Total Bilirubin AST ALT Alkaline Phosphata se Total Protein Albumin Globulin Vitals: Last Vital Signs Temp 98.4 F 01/20/20 07:54 Pulse 66 01/20/20 07:54 Resp 16 01/20/20 07:54 BP 175/76 01/20/20 07:54 Pulse Ox 95 01/20/20 07:54 Discharge Plan Discharge Patient Disposition: Home, Self-Care Condition: Stable Prescriptions: New hydrochlorothiazide 25 mg Tablet 25 mg PO DAILY 30 Days Qty: 30 RF: 0 levofloxacin 750 mg Tablet 750 mg PO DAILY@0600 13 Days Qty: 13 RF: 0 Macrobid 100 mg capsule 100 mg PO BEDTIME 14 Days Qty: 14 RF: 0 potassium chloride [Klor-Con M20] 20 mEq tablet,ER particles/crystals 20 meq PO DAILY 30 Days Qty: 30 RF: 0 Continued amlodipine-benazepril 5-40 mg capsule 1 cap PO DAILY RF: 0 Toprol XL 100 mg tablet extended release 24 hr 100 mg PO DAILY RF: 0 oxycodone-acetaminophen 5-325 mg tablet 1 tab PO Q6H PRN (Reason: Pain, Moderate) RF: 0 levothyroxine 88 mcg tablet 88 mcg PO DAILY RF: 0 escitalopram oxalate [Lexapro] 10 mg tablet 10 mg PO DAILY RF: 0 metformin 500 mg Tablet Extended Release 24hr 1,000 mg PO DAILY RF: 0 One-A-Day Womens Formula 1 tab PO DAILY RF: 0 Discontinued hydrochlorothiazide 25 mg tablet 50 mg PO DAILY RF: 0 Referrals: Jose Yusuf MD [Physician] - 02/01/20 (Please call Tuesday to set up a follow up appointment with Dr. yusuf. you will need a KUB done ) Nemesio Ireland MD [Primary Care Provider] - 4-7 days (Please call Tuesday to set up a follow up appointment with Dr. Ireland) Discharge Diet: Cardiac Discharge Activity: Resume usual activity Activity Restrictions/Additional Instructions: Urology/Madelin: 1. Maintain antibiotic therapy and ureteral stent until the stone has been tianna ирина. 2. I will see you back in clinic on 02/01/2020 with an x-ray. We will make plans for treating the stone. -Please take Levaquin antibiotic once daily for 13 remaining days -After Levaquin antibiotic has finished, then start Macrobid for chronic cystitis -Please follow-up with primary care provider in 1 week Discharge Attestations Time Spent in Discharge Care*: less than 30 min Quality Metrics Clinical Quality Measures During this hospital stay, did patient experience: None Coding Level of Care Code Acute Horse Rancher for Chg Fwd Diagnoses History of recurrent UTI (urinary tract infection) Z87.440 Obstruction of left ureteropelvic junction (UPJ) due to stone N20.1 Cystitis cystica N30.80 Obstructive pyelonephritis N11.1
[2020-01-20 10:44] VITALS: BP 175/76; PULSE 66; RESP 16; TEMP 36.9; O2SAT 95
[2020-01-20 11:07] LABS: Glucose Point of Care 151 mg/dL (70-110)
--- NOTE | 2020-01-20 11:18 | DCPLANNER ---
Pg 2 of IM updated and reviewed with pt. No questions, she is ready for d/c. Copy provided.
[2020-01-20 11:57] VITALS: BP 160/82; PULSE 78; RESP 16; TEMP 36.9; O2SAT 97
== END 2020-01-20 14:02 | disposition home or self-care (01) | DRG 659 ==
LOC: ER 10:52 → ICU 10:53 → MEDSURG 01-18 15:21
PROVIDERS: Family Medicine; Urology; Admitting Provider Family Medicine; Emergency Provider Physician Assistant; PCP Family Medicine; Visit Provider Family Medicine
PROC: 0TJB8ZZ Inspection of Bladder, Via Natural or Artificial Opening Endoscopic (ICD-10-PCS; CPT 52000; principal; 2020-01-18 17:05)
PROC: 0TJ98ZZ Inspection of Ureter, Via Natural or Artificial Opening Endoscopic (ICD-10-PCS; CPT 52351; 2020-01-18 17:05)
PROC: 0T778DZ Dilation of Left Ureter with Intraluminal Device, Via Natural or Artificial Opening Endoscopic (ICD-10-PCS; CPT 50605; 2020-01-18 17:05)
DX: N30.81 Other cystitis with hematuria (principal); J18.9 Pneumonia, unspecified organism; N20.1 Calculus of ureter; Z68.42 Body mass index [BMI] 45.0-49.9, adult; B96.20 Unspecified Escherichia coli [E. coli] as the cause of diseases classified elsewhere; N11.1 Chronic obstructive pyelonephritis; I10 Essential (primary) hypertension; E11.9 Type 2 diabetes mellitus without complications; E66.9 Obesity, unspecified; Z79.84 Long term (current) use of oral hypoglycemic drugs; E78.5 Hyperlipidemia, unspecified; G89.29 Other chronic pain; M54.9 Dorsalgia, unspecified; G47.33 Obstructive sleep apnea (adult) (pediatric); M54.2 Cervicalgia; M19.90 Unspecified osteoarthritis, unspecified site; Z87.891 Personal history of nicotine dependence
CPT/HCPCS: 12345; 36415; 36416; 71045; 74176; 76000; 80053; 80061; 81001; 82962; 83036; 83605; 83735; 83880; 84100; 84145; 85025; 86140; 86403; 87040; 87077; 87086; 87186; 87205; 87635; 87804; 94640; 94664; 96372; 99284; A9270; C2625; J0456; J0696; J1650; J1815; J2543; J2704; J3010; J3480; J7030; J7050

== ENCOUNTER 2020-02-01 07:00 | Outpatient (CLI) | payer MEDICARE, OTHER, SELFPAY | END 2020-02-01 09:00 | disposition home or self-care (01) | LOC: RAD 05-16 11:28 | PROVIDERS: PCP Family Medicine; Visit Provider Urology | DX: N30.80 Other cystitis without hematuria (principal) | CPT/HCPCS: 81001 ==

== ENCOUNTER 2020-02-01 11:41 | Day surgery (SDC) | payer MEDICARE, OTHER, SELFPAY ==
[2020-01-31 16:20] VITALS: BMI 47.5
[2020-02-01] VITALS (8 sets, daily range): BP systolic 142–160; BP diastolic 77–87; PULSE 73–81; RESP 16–20; TEMP 36.3–36.7; O2SAT 96–100
--- NOTE | 2020-02-01 11:40 | XR_ITS ---
WS: [id number] ABDOMEN KUB CLINICAL INFORMATION: Renal/ureteral calculi. COMPARISON: June 06, [address] January 18, 2020 FINDINGS: Left double-J ureteral stent. Stable 14 mm left renal parenchymal calculus. Calcified uterine fibroid . Lumbar scoliosis convex right with advanced spondylitic changes. XR/XR KUB [id number] Impression: Left double-J ureteral stent with stable left renal parenchymal calculus
[2020-02-01 12:46] LABS: Glucose Point of Care 122 mg/dL (70-110)
--- NOTE | 2020-02-01 13:03 | P.ANESASSM_ITS ---
Pre-Anesthetic Assessment Pre-Anesthetic Assessment: Height/Weight: Height 1.57 m Weight 117.934 kg Preop Diagnosis: Obstructing left UPJ stone with UTI leukocytosis and concern for sepsis. Proposed Procedure: Operation Date: 02/01/20 13:00 Proposed Procedures p ESWL N20.1 N11.1(Not Applicable) - Jose Yusuf MD Was Beta Leidy taken within 24 hours: Yes Last intake: Intake Last Liquid Date 01/31/20 Last Liquid Time 22:00 Last Solid Date 01/31/20 Last Solid Time 22:00 Social: Social History: Alcohol and No tobacco Comment: quit smoking two months ago Exam: Pre-Anes Outpt Exam: alert, oriented x 3, clear to auscultation bi laterally and regular rate & rhythm Airway: Submandibular: WNL Cervical ROM: Other MP: 2 PFSH Anesthesia PFSH: Medical History Chronic back pain Chronic neck pain Diabetes History of osteoarthritis Hypertension Surgical History History of back surgery History of neck surgery History of ureter stent Family History Other Diabetes Social History (Updated 02/01/20 @ 10:47 by RENETTA Rosenberg) Smoking and tobacco status: former smoker Alcohol intake: never Adopted: No Caregiver/support person: No Lives independently: No Household members: spouse Marital status: Current occupational status: retired History of recent travel: No Current gender identity: Female Data Anesthesia Other Labs: Laboratory Results - last 48 hr 02/01/20 12:41 POC Glucose 122 Cardiac Studies: No Data to Display
[2020-02-01] MEDS: levofloxacin-dextrose 5 % 500 MG/100 ML PREMIX 100 MG IV (13:20)
[2020-02-01] MEDS: sodium chloride 0.9% 1,000 ML 30 ML IV (13:20)
--- NOTE | 2020-02-01 14:28 | PM.OP ---
Operative Report Date of procedure: February 01, 2020 Pre-op Diagnosis: Obstructing left UPJ stone with UTI leukocytosis and concern for sepsis. Post-op diagnosis: same Procedure Done: Extracorporeal shockwave lithotripsy to left renal calculus Pathology: none sent Surgeon: Madelin Accountancy Professor: Lithotripsy Furnace Liner: aKushik James Anesthesia: General (Stephan Cadet CRNA) Estimated blood loss: None Complications: None Findings: Stone easily identified. Treated with 2500 shocks with excellent response. Condition: stable Disposition: PACU Brief History: Mrs. Nielsen is a very pleasant 69-year-old white female who recently was diagnosed with obstructive pyelonephritis from a large stone in her left UPJ. She was placed on antibiotics and underwent emergency ureteral stenting and is recovered well from the treatment. Admitted to date outpatient surgery for ESWL to the stone. Procedure: After routine preoperative evaluation examination and obtaining of informed consent she was taken to the operating suite on 02/01/2020 where general anesthesia was administered without difficulty after appropriate timeout was performed, SCDs confirmed to be functioning, preoperative antibiotics administered, beta-carmenicta protocol confirmed. Positioned on the Dornier unit such that the stone was located at the focal point utilizing biplanar fluoroscopy with a shock head positioned posteriorly. The stone was easily identified and focused upon. Shockwave was initiated at a rate of 60 and intensity of 1 with advancement to an intensity of 4 after a several minute pause following approximately 300 shocks. Change was noted early and continued throughout the procedure. Real-time fluoroscopy was utilized for positioning changes as indicated. By the completion of the procedure the stone was dramatically changed in shape density and occupied a much broader diameter. A total of 2500 shocks were administered. She tolerated the procedure well without complications and was awakened in the operating room and returned to the recovery in stable condition. PLANS: 1. Follow-up in approximately 1 week with KUB and possible cystoscopy stent removal 2. Continue Levaquin.
== END 2020-02-01 15:45 | disposition home or self-care (01) ==
PROVIDERS: PCP Family Medicine; Visit Provider Urology
PROC: (CPT 50590; principal; 2020-02-01 13:00)
DX: N20.0 Calculus of kidney (principal); E11.9 Type 2 diabetes mellitus without complications; Z79.84 Long term (current) use of oral hypoglycemic drugs; I10 Essential (primary) hypertension; Z87.891 Personal history of nicotine dependence
CPT/HCPCS: 50590; 12345; 36416; 74018; 82962; J1956; J2001; J2405; J2704; J2710; J3010; J3490; J7030

== ENCOUNTER 2020-02-08 08:36 | Outpatient (CLI) | payer MEDICARE, OTHER, SELFPAY ==
--- NOTE | 2020-02-08 08:30 | XRR_ITS ---
PROCEDURE INFORMATION: Exam: XR Abdomen, 1 View Exam date and time: 02/08/2020 8:30 AM Age: 69 years old Clinical indication: Condition or disease; Kidney or ureter condition; Calculus (stone) in ureter; Additional info: Ureteral obstruction TECHNIQUE: Imaging protocol: XR of the abdomen. Views: Frontal supine view of the abdomen. 1 View. COMPARISON: CR XR KUB [id number] 02/01/2020 11:59 AM FINDINGS: Gastrointestinal tract: Prominent stool. Intraperitoneal space: Multiple punctate pelvic calcifications again demonstrated. Both urolithiasis and phleboliths would be included in the differential diagnosis. Organs: Curvilinear calcification overlying the lower pole left kidney, suggesting urolithiasis. This currently measures 12 x 4 mm, and previously measured 15 x 8 mm. Stable calcified uterine fibroid. Bones/joints: Dextroscoliosis and degenerative change. Device: Left double-J catheter again demonstrated. XR/XR KUB [id number] IMPRESSION: 1. Curvilinear calcification overlying the lower pole left kidney, suggesting urolithiasis. This currently measures 12 x 4 mm, and previously measured 15 x 8 mm. 2. Additional findings as described above.
== END 2020-02-08 08:37 | disposition home or self-care (01) ==
LOC: RAD 08:41
PROVIDERS: PCP Family Medicine; Visit Provider Urology
DX: N20.1 Calculus of ureter (principal); N28.89 Other specified disorders of kidney and ureter
CPT/HCPCS: 74018; 81001

== ENCOUNTER 2020-03-21 08:10 | Outpatient (CLI) | payer MEDICARE, OTHER, SELFPAY ==
--- NOTE | 2020-03-21 08:15 | XRR_ITS ---
PROCEDURE INFORMATION: Exam: XR Abdomen, 1 View Exam date and time: 03/21/2020 8:37 AM Age: 69 years old Clinical indication: Condition or disease; Kidney or ureter condition; Calculus (stone) in kidney; Prior surgery; Surgery date: 1-6 months; Surgery type: Ureteral stent; Additional info: Ureteral stent has been removed. HX right side TECHNIQUE: Imaging protocol: XR of the abdomen. Views: Frontal supine view of the abdomen. 1 View. COMPARISON: CR XR KUB [id number] 02/08/2020 8:45 AM FINDINGS: Gastrointestinal tract: Normal. No bowel dilation. Intraperitoneal space: Additional small punctate calcifications within the low pelvis. Organs: Possible calcified uterine fibroid in the pelvis. There is possible faint demonstration of calcific density in the left abdomen with limited definition of the renal outline bilaterally. Bones/joints: Advanced degenerative change of lumbar spine with postoperative changes likely involving L3 and L4. Diffuse interspace narrowing. Degenerative vacuum disc L2 and L3. Possible rounded calcification overlies the left sacrum. Soft tissues: Interval removal of left ureteral stent. XR/XR KUB [id number] IMPRESSION: 1. Postoperative changes and degenerative change lumbar spine. 2. Equivocal faint calcific or hyperdensity left abdomen less prominent as compared to previous and could reflect density related to bowel. Findings could reflect minimally residual fragmented calcific material related to prior lithotripsy. 3. Possible rounded persistent calcification overlies the area of left sacrum of uncertain location. This may reflect branching iliac vascular calcification demonstrated on prior CT. 4. Persistent multiple calcifications in the pelvis several of which are punctate in size on the left probably reflecting phleboliths.
== END 2020-03-21 08:11 | disposition home or self-care (01) ==
LOC: RAD 08:14
PROVIDERS: PCP Family Medicine; Visit Provider Urology
DX: Z96.0 Presence of urogenital implants (principal)
CPT/HCPCS: 74018; 80053; 81001

== ENCOUNTER 2020-06-18 13:07 | Outpatient (CLI) | payer MEDICARE, OTHER, SELFPAY ==
--- NOTE | 2020-06-18 12:15 | XRR_ITS ---
PROCEDURE INFORMATION: Exam: XR Abdomen, 1 View Exam date and time: 06/18/2020 1:26 PM Age: 69 years old Clinical indication: Condition or disease; Kidney or ureter condition; Other: Urolithiasis TECHNIQUE: Imaging protocol: XR of the abdomen. Views: Frontal supine view of the abdomen. 1 View. COMPARISON: 1. CR XR KUB [id number] 03/21/2020 8:[address] abdomen pelvis wo con [id number] 01/18/2020 2:51:09 PM FINDINGS: Gastrointestinal tract: Normal. No bowel dilation. Organs: Calcified fibroid. Bones/joints: Lumbar degenerative change and scoliosis. Other findings: 3 mm calcification overlying the lower lower pole. XR/XR KUB [id number] IMPRESSION: Small left renal calculus.
== END 2020-06-18 13:08 | disposition home or self-care (01) ==
LOC: RAD 13:11
PROVIDERS: PCP Family Medicine; Visit Provider Urology
DX: N20.9 Urinary calculus, unspecified (principal); N20.0 Calculus of kidney
CPT/HCPCS: 74018

== ENCOUNTER 2020-12-24 08:43 | Outpatient (CLI) | payer MEDICARE, OTHER, SELFPAY ==
--- NOTE | 2020-12-24 08:52 | CT_ITS ---
WS: [id number] LDCT LUNG CANCER SCREENING HISTORY: HX OF TOBACCO USE TECHNIQUE: Axial imaging performed from the apices to 1 cm below the costophrenic angles. Coronal and sagittal reformats are submitted with axial MIP series. All CT scans at [facility] use at least one of these dose optimization techniques: automated exposure control; mA and/or kV adjustment per patient size (includes targeted exams where dose is matched to clinical indication); or iterativ e reconstruction. DLP: 51.02 mGy.cm DIvol: 1.58 mGy COMPARISON: 07/05/2014 Diagnostic quality: Satisfactory Lung Nodules: None. Lungs: Hyperexpanded lungs with chronic emphysema. Heart: Moderately enlarged heart. Extensive coronary artery calcifications. Other findings: Mildly enlarged pulmonary artery. Mild atherosclerosis aorta. CT/CT lung screening [id number] IMPRESSION: LUNG-RADS: 1S-Negative with Significant Findings FOLLOW UP: 12 Month: Continue annual screening with LDCT OTHER FINDINGS (S MODIFIER): Extensive coronary artery atherosclerosis. If card iology evaluation has not been performed this may be helpful due to the extensi ve calcification in the LEFT circumflex and LEFT anterior descending coronary a rteries.
== END 2020-12-24 08:44 | disposition home or self-care (01) ==
LOC: RAD 08:51
PROVIDERS: PCP Family Medicine; Visit Provider Family Medicine
DX: Z12.2 Encounter for screening for malignant neoplasm of respiratory organs (principal); Z87.891 Personal history of nicotine dependence; I25.10 Atherosclerotic heart disease of native coronary artery without angina pectoris; I70.0 Atherosclerosis of aorta
CPT/HCPCS: 71271

== ENCOUNTER 2021-02-05 13:04 | Outpatient (CLI) | payer MEDICARE, OTHER, SELFPAY ==
--- NOTE | 2021-02-05 13:08 | MM_ITS ---
WS: [id number] BILATERAL SCREENING DIGITAL MAMMOGRAM WITH CAD HISTORY: SCREENING COMPARISON: 2018 and 09/29/2012 Bilateral CC and MLO views submitted. Computer aided detection analyzed. Breast composition: There are scattered areas of fibroglandular density. No suspicious masses, microc alcifications or architectural distortion. Calcifications within each breast are stable over long ter m. MM/[place] [id number] IMPRESSION: BI-RADS: 2-Benign FOLLOW UP: 1 Year Follow-up
== END 2021-02-05 13:05 | disposition home or self-care (01) ==
LOC: RADSHAW 13:07
PROVIDERS: PCP Family Medicine; Visit Provider Family Medicine
DX: Z12.31 Encounter for screening mammogram for malignant neoplasm of breast (principal)
CPT/HCPCS: 77067

== ENCOUNTER 2021-07-21 06:00 | Outpatient (RCR) | payer MEDICARE, OTHER, SELFPAY | END 2021-08-11 23:59 | disposition home or self-care (01) | LOC: SPT 06:00 | PROVIDERS: PCP Family Medicine; Referring Provider Family Medicine; Visit Provider Family Medicine | DX: M54.9 Dorsalgia, unspecified (principal); G89.29 Other chronic pain | CPT/HCPCS: 97110; 97113; 97162 ==

== ENCOUNTER 2021-08-12 06:00 | Outpatient (RCR) | payer MEDICARE, OTHER, SELFPAY | END 2021-09-11 23:59 | disposition home or self-care (01) | LOC: SPT 06:00 | PROVIDERS: PCP Family Medicine; Referring Provider Family Medicine; Visit Provider Family Medicine | DX: M54.9 Dorsalgia, unspecified (principal); G89.29 Other chronic pain; M25.562 Pain in left knee; M25.561 Pain in right knee | CPT/HCPCS: 97113 ==

== ENCOUNTER 2021-09-12 06:00 | Outpatient (RCR) | payer MEDICARE, OTHER, SELFPAY | END 2021-10-12 23:59 | disposition home or self-care (01) | LOC: SPT 06:00 | PROVIDERS: PCP Family Medicine; Referring Provider Family Medicine; Visit Provider Family Medicine | DX: G89.29 Other chronic pain (principal); M54.9 Dorsalgia, unspecified | CPT/HCPCS: 97110; 97164 ==

== ENCOUNTER 2021-10-13 06:00 | Outpatient (RCR) | payer MEDICARE, OTHER, SELFPAY | END 2021-11-09 23:59 | disposition home or self-care (01) | LOC: SPT 06:00 | PROVIDERS: PCP Family Medicine; Referring Provider Family Medicine; Visit Provider Family Medicine | DX: M54.9 Dorsalgia, unspecified (principal); G89.29 Other chronic pain | CPT/HCPCS: 97110 ==

== ENCOUNTER 2021-10-20 06:00 | Outpatient (CLI) | payer MEDICARE, OTHER, SELFPAY | END 2021-10-20 23:59 | disposition home or self-care (01) | LOC: SPT 11-02 07:35 | PROVIDERS: PCP Family Medicine; Referring Provider Family Medicine; Visit Provider Family Medicine | DX: M25.561 Pain in right knee (principal); M25.562 Pain in left knee | CPT/HCPCS: L1851 ==

== ENCOUNTER 2021-11-10 06:00 | Outpatient (RCR) | payer MEDICARE, OTHER, SELFPAY | END 2021-12-10 23:59 | disposition home or self-care (01) | LOC: SPT 06:00 | PROVIDERS: PCP Family Medicine; Referring Provider Family Medicine; Visit Provider Family Medicine | DX: M54.9 Dorsalgia, unspecified (principal); G89.29 Other chronic pain | CPT/HCPCS: 97110 ==

== ENCOUNTER 2021-11-25 12:14 | Outpatient (CLI) | payer MEDICARE, OTHER, SELFPAY ==
--- NOTE | 2021-11-25 12:28 | US_ITS ---
WS: [id number] INDICATION: RIGHT chest wall mass TECHNIQUE: Ultrasound soft tissue below clavicle. FINDINGS: Ultrasound soft tissue RIGHT clavicle area of concern. In the area of concern, there is a s olid mixed echogenicity subcutaneous lesion likely representing incidental lipoma measuring approxima tely 2.1 x 4.8 CM. No other suspicious lesions. US/US chest [id number] IMPRESSION: 1. Mixed echogenicity lesion likely incidental lipoma in the area of concern d escribed above. 2. No other significant findings.
== END 2021-11-25 12:15 | disposition home or self-care (01) ==
LOC: RAD 12:20
PROVIDERS: PCP Family Medicine; Visit Provider Family Medicine
DX: R22.2 Localized swelling, mass and lump, trunk (principal)
CPT/HCPCS: 76604

== ENCOUNTER 2021-12-11 06:00 | Outpatient (RCR) | payer MEDICARE, OTHER, SELFPAY | END 2022-01-09 23:59 | disposition home or self-care (01) | LOC: SPT 06:00 | PROVIDERS: PCP Family Medicine; Referring Provider Family Medicine; Visit Provider Family Medicine | DX: M54.9 Dorsalgia, unspecified (principal); M25.561 Pain in right knee; G89.29 Other chronic pain | CPT/HCPCS: 97110 ==

== ENCOUNTER 2022-01-12 13:09 | Outpatient (CLI) | payer MEDICARE, OTHER, SELFPAY ==
--- NOTE | 2022-01-12 13:32 | CT_ITS ---
WS: [id number] LDCT LUNG CANCER SCREENING HISTORY: HX OF TOBACCO USE TECHNIQUE: Axial imaging performed from the apices to 1 cm below the costophrenic angles. Coronal and sagittal reformats are submitted with axial MIP series. All CT scans at [facility] use at least one of these dose optimization techniques: automated exposure control; mA and/or kV adjustment per patient size (includes targeted exams where dose is matched to clinical indication); or iterativ e reconstruction. DLP: 74.21 mGy.cm DIvol: Mean CTDIvol: 1.60 (mGy) COMPARISON: 12/25/2019 Diagnostic quality: Satisfactory Lung Nodules: None. Lungs: Hyperexpanded lungs with emphysema. Heart: Moderate enlargement of the heart, similar to the prior examination. Again noted is extensive coronary artery calcification. No effusion Other findings: Very difficult evaluation of the mediastinum. Lymph nodes would be difficult to visua lize. Pulmonary artery isn't enlarged. Limited visualization of the aorta. Small hiatal hernia. CT/CT lung screening [id number] IMPRESSION: LUNG-RADS: 1-Negative FOLLOW UP: 12 Month: Continue annual screening with LDCT OTHER FINDINGS (S MODIFIER): None.
== END 2022-01-12 13:10 | disposition home or self-care (01) ==
LOC: RAD 13:15
PROVIDERS: PCP Family Medicine; Visit Provider Family Medicine
DX: Z12.2 Encounter for screening for malignant neoplasm of respiratory organs (principal); Z87.891 Personal history of nicotine dependence
CPT/HCPCS: 71271

== ENCOUNTER 2022-06-22 09:55 | Outpatient (CLI) | payer MEDICARE, OTHER, SELFPAY ==
--- NOTE | 2022-06-22 10:30 | XR_ITS ---
WS: [id number] KUB, AP view, 06/22/2022 Clinical Data: Urolithiasis Comparison: KUB, 06/18/2020 Findings: No abnormal intraabdominal masses are seen. There is no dilatated small bowel or evidence of obstruct ion. There is a questionable left renal calculus. There is a calcified uterine fibroid in the true pelvis. There is a dextroscoliosis with laminectomies at L3 and L4. XR/XR KUB [id number] Impression: 1. Possible small left renal calcification. 2. Calcified uterine leiomyoma.
== END 2022-06-22 09:56 | disposition home or self-care (01) ==
LOC: RAD 09:58
PROVIDERS: PCP Family Medicine; Visit Provider Urology
DX: N20.9 Urinary calculus, unspecified (principal); D25.9 Leiomyoma of uterus, unspecified; Z87.440 Personal history of urinary (tract) infections
CPT/HCPCS: 74018; 81003; 99213

== ENCOUNTER 2022-07-21 13:59 | Outpatient (CLI) | payer MEDICARE, OTHER, SELFPAY ==
--- NOTE | 2022-07-21 14:07 | MM_ITS ---
WS: [id number] BILATERAL 3D TOMOSYNTHESIS DIGITAL SCREENING MAMMOGRAPHY WITH CAD CLINICAL INFORMATION: SCREENING HISTORY: Screening mammogram. No current complaints. COMPARISON: February 05, 2021 TECHNIQUE: Bilateral CC and MLO views. FINDINGS: Scattered fibroglandular densities bilaterally. No suspicious focal mass, asymmetry, calcifications, or architectural distortion. No evidence of malignancy. Dystrophic calcification LEFT breast. Punctat e and lucent centered calcifications. Stable clustered calcifications LEFT breast. MM/[place] [id number] IMPRESSION: BI-RADS: 2-Benign FOLLOW UP: 1 Year Follow-up Recommend return to annual screening mammography.
--- NOTE | 2022-07-21 14:08 | XR_ITS ---
WS: [id number] DEXA (DUAL ENERGY X-RAY ABSORPTIOMETRY) Bone mineral density was performed using a daysoft machine. HISTORY: POST MENOPAUSAL COMPARISON: None available. Lumbar spine BMD (L1-L4): 1.222 g/cm2 T score: 0.3 Z score: 1.2 Total hip BMD: Left: 0.881 g/cm2. T score: -1.0 Z score: 0.0 Right: 0.872 g/cm2. T score: -1.1 Z score: -0.1 10 year probability of a major osteoporotic fracture is 18.7%. XR/XR DEXA axial skeleton* [id number] IMPRESSION: OSTEOPENIA based upon the WHO classification for females.
== END 2022-07-21 14:00 | disposition home or self-care (01) ==
LOC: RAD 14:00
PROVIDERS: PCP Family Medicine; Visit Provider Family Medicine
DX: Z12.31 Encounter for screening mammogram for malignant neoplasm of breast (principal); Z78.0 Asymptomatic menopausal state; M85.80 Other specified disorders of bone density and structure, unspecified site
CPT/HCPCS: 77063; 77067; 77080

== ENCOUNTER 2023-02-04 10:05 | Outpatient (CLI) | payer MEDICARE, OTHER, SELFPAY ==
--- NOTE | 2023-02-04 10:13 | CT_ITS ---
WS: [id number] LDCT LUNG CANCER SCREENING TECHNIQUE: Noncontrast CT of the chest with coronal and sagittal reformatted images. CLINICAL INFORMATION: HX OF TOBACCO USE COMPARISON: January 12, 2022 DLP: 101.80 mGy.cm DIvol: Mean CTDIvol: 2.20 (mGy) All CT scans at [facility] use at least one of these dose optimization techniques: automat ed exposure control; mA and/or kV adjustment per patient size (includes targeted exams where dose is matched to clinical indication); or iterative reconstruction. FINDINGS:Cardiomegaly. Lungs are well aerated. No acute pulmonary infiltrates. No suspicious pulmonar y parenchymal abnormalities Normal caliber thoracic aorta. Aortic calcification. No mediastinal or hilar lymphadenopathy. Coronar y calcification. No axillary lymphadenopathy. Adrenal glands are normal. Partially visualized renal c ysts. Small esophageal hiatal hernia. Mild thoracic curve. Postoperative changes lower cervical spine. CT/CT lung screening [id number] IMPRESSION: LUNG-RADS: 1-Negative FOLLOW UP: 12 Month: Continue annual screening with LDCT
== END 2023-02-04 10:06 | disposition home or self-care (01) ==
PROVIDERS: PCP Family Medicine; Visit Provider Family Medicine
DX: Z13.83 Encounter for screening for respiratory disorder NEC (principal); Z87.891 Personal history of nicotine dependence
CPT/HCPCS: 71271

== ENCOUNTER 2023-04-11 04:04 | Outpatient (CLI) | payer MEDICARE, OTHER, SELFPAY | END 2023-04-11 04:05 | disposition home or self-care (01) | LOC: SLEEP 04-12 04:05 | PROVIDERS: PCP Family Medicine; Visit Provider Family Medicine | DX: G47.33 Obstructive sleep apnea (adult) (pediatric) (principal) | CPT/HCPCS: 95811 ==

== ENCOUNTER 2023-07-27 10:12 | Outpatient (CLI) | payer MEDICARE, OTHER, SELFPAY ==
--- NOTE | 2023-07-27 10:16 | MM_ITS ---
WS: [id number] VIEWS: MLO and CC views both breasts. 3D digital tomosynthesis is also included in this exam. Comparison made with prior exam of 10/12/1999, 09/29/2012, 06/13/2019, 02/05/2021, 07/21/2022.. Findings: There was no sign of mass, architectural distortion or suspicious calcification in either breast. The breasts are almost entirely fatty Impression: MM/[place] [id number] BI-RADS: 1-Negative FOLLOW-UP: 1 Year Follow-up This mammogram was also analyzed by the Computer Aided Detection System R2 Imag e Insurance Counselor.
== END 2023-07-27 10:13 | disposition home or self-care (01) ==
LOC: RAD 10:12
PROVIDERS: PCP Family Medicine; Visit Provider Family Medicine
DX: Z12.31 Encounter for screening mammogram for malignant neoplasm of breast (principal)
CPT/HCPCS: 77063; 77067

== ENCOUNTER 2023-11-04 11:53 | Outpatient (CLI) | payer MEDICARE, OTHER, SELFPAY ==
--- NOTE | 2023-11-04 11:58 | MRR_ITS ---
PROCEDURE INFORMATION: Exam: MR Left Upper Extremity Joint Without and With Contrast; Shoulder Exam date and time: 11/04/2023 12:17 PM Age: 73 years old Clinical indication: Mass or lump; Left; Prior surgery; Surgery date: 6+ months; Surgery type: Rtc surgery PT can not remember which shoulder; Additional info: L shoulder mass TECHNIQUE: Imaging protocol: Magnetic resonance imaging of the left upper extremity without and with contrast. Exam focused on the shoulder. Contrast material: MULTIHANCE; Contrast volume: 20 ml; Contrast route: INTRAVENOUS (IV); COMPARISON: CR XR shoulder LT min 2V* [id number] 02/20/2019 3:00 PM FINDINGS: Bones/joints: A large joint effusion involves the shoulder joint. The effusion is confluent with a 4.2 cm thin walled synovial cyst lying lateral to the humeral head within the joint capsule. Prominent arthritic spurring involves the AC joint. Arthritic spurring involves the humeral head. Glenoid labrum: Unremarkable. No evidence of tear. Bursae: Subacromial bursitis is noted. Supraspinatus tendon: There is an almost complete tear involving the supraspinatus tendon. Infraspinatus tendon: There is mild intrasubstance partial tearing involving the infraspinatus tendon. Subscapularis tendon: Unremarkable. No evidence of tear. Teres minor tendon: Unremarkable. No evidence of tear. Tendon of biceps brachii: Fluid surrounds the biceps tendon and the tendon is partially torn. Glenohumeral ligaments: Unremarkable. Soft tissues: Unremarkable. MR/MR shoulder LT wo/w con [id number] IMPRESSION: 1. Large joint effusion and synovial cyst causing mass effect lateral to the humeral head 2. Prominent arthritic changes 3. Almost complete tear of the supraspinatus tendon 4. Partial tearing of the infraspinatus and biceps tendons
[2023-11-04] MEDS: gadobenate dimeglumine 20 mL vial IV (13:03)
== END 2023-11-04 11:54 | disposition home or self-care (01) ==
LOC: RAD 11:54
PROVIDERS: PCP Family Medicine; Visit Provider Surgery
DX: M25.412 Effusion, left shoulder (principal); M71.312 Other bursal cyst, left shoulder; M19.012 Primary osteoarthritis, left shoulder; M75.112 Incomplete rotator cuff tear or rupture of left shoulder, not specified as traumatic; S46.212A Strain of muscle, fascia and tendon of other parts of biceps, left arm, initial encounter; X58.XXXA Exposure to other specified factors, initial encounter
CPT/HCPCS: 73223; A9577

== ENCOUNTER 2024-02-07 09:57 | Outpatient (CLI) | payer MEDICARE, OTHER, SELFPAY ==
--- NOTE | 2024-02-07 10:00 | CT_ITS ---
WS: [id number] LDCT LUNG CANCER SCREENING HISTORY: NICOTINE DEPENDENCE,CIGARETTES TECHNIQUE: Axial imaging performed from the apices to 1 cm below the costophrenic angles. Coronal and sagittal reformats are submitted with axial MIP series. All CT scans at [facility] use at least one of these dose optimization techniques: automated exposure control; mA and/or kV adjustment per patient size (includes targeted exams where dose is matched to clinical indication); or iterativ e reconstruction. DLP: 94.00 mGy.cm DIvol: Mean CTDIvol: 2.50 (mGy) COMPARISON: 02/04/2023 Diagnostic quality: Satisfactory Lungs: Centrilobular emphysema. No pulmonary mass or pneumonia. No endobronchial lesions. Heart: Mild cardiomegaly. Moderate coronary artery calcifications.. Other findings: Pulmonary artery is dilated to 4.6 cm similar to the prior study. Mildly ectatic aort a with mild atherosclerotic plaque. No adenopathy. Small hiatal hernia. Cholelithiasis. Suprarenal an d SMA calcifications. Thoracic curvature. CT/CT lung screening [id number] IMPRESSION: LUNG-RADS: 1S-Negative with Significant Findings FOLLOW UP: 12 Month: Continue annual screening with LDCT OTHER FINDINGS (S MODIFIER): Dilated pulmonary artery. Correlate for pulmonary hypertension.
== END 2024-02-07 09:58 | disposition home or self-care (01) ==
LOC: RAD 09:57
PROVIDERS: PCP Family Medicine; Visit Provider Family Medicine
DX: Z12.2 Encounter for screening for malignant neoplasm of respiratory organs (principal); F17.210 Nicotine dependence, cigarettes, uncomplicated
CPT/HCPCS: 71271

== ENCOUNTER 2024-02-28 11:41 | Outpatient (RCR) | payer MEDICARE, OTHER, SELFPAY | END 2024-03-11 23:59 | disposition home or self-care (01) | LOC: SPT 11:41 | PROVIDERS: PCP Family Medicine; Visit Provider Family Medicine | DX: M25.361 Other instability, right knee (principal) | CPT/HCPCS: 97110; 97112; 97161 ==

== ENCOUNTER 2024-03-12 06:00 | Outpatient (RCR) | payer MEDICARE, OTHER, SELFPAY | END 2024-04-11 23:59 | disposition home or self-care (01) | LOC: SPT 06:00 | PROVIDERS: PCP Family Medicine; Visit Provider Family Medicine | DX: M23.51 Chronic instability of knee, right knee (principal) | CPT/HCPCS: 97110; 97112 ==

== ENCOUNTER 2024-04-12 06:00 | Outpatient (RCR) | payer MEDICARE, OTHER, SELFPAY | END 2024-05-12 23:59 | disposition home or self-care (01) | LOC: SPT 06:00 | PROVIDERS: PCP Family Medicine; Visit Provider Family Medicine | DX: M25.361 Other instability, right knee (principal) | CPT/HCPCS: 97110; 97112 ==

== ENCOUNTER 2024-07-24 12:51 | Outpatient (CLI) | payer MEDICARE, OTHER, SELFPAY ==
--- NOTE | 2024-07-24 12:54 | XR_ITS ---
WS: [id number] DEXA (DUAL ENERGY X-RAY ABSORPTIOMETRY) Bone mineral density was performed using a LiveIntent machine. HISTORY: POSTMENOPAUSAL COMPARISON: 07/21/2022 Lumbar spine BMD (L1-L4): 1.128 g/cm2 T score: -0.4 Z score: 0.2 Total hip BMD: Left: 0.869 g/cm2. T score: -1.1 Z score: -0.1 Right: 0.840 g/cm2. T score: -1.3 Z score: -0.4 10 year probability of a major osteoporotic fracture is 17.7%. Compared to the prior study from 07/21/2022. Lumbar spine bone mineral density has decreased by 7.7%. Bilateral hips bone mineral density has decreased by 2.4%. XR/XR DEXA axial skeleton* [id number] IMPRESSION: OSTEOPENIA based upon the WHO classification for females. Significant decrease in bone mineral density since the prior study within the l umbar spine and hips.
== END 2024-07-24 12:52 | disposition home or self-care (01) ==
LOC: RAD 12:52
PROVIDERS: PCP Family Medicine; Visit Provider Physician Assistant
DX: Z13.820 Encounter for screening for osteoporosis (principal); Z78.0 Asymptomatic menopausal state; M85.80 Other specified disorders of bone density and structure, unspecified site
CPT/HCPCS: 77080

== ENCOUNTER 2024-07-30 13:30 | Outpatient (CLI) | payer MEDICARE, OTHER, SELFPAY ==
--- NOTE | 2024-07-30 13:36 | MM_ITS ---
WS: [id number] VIEWS: MLO and CC views both breasts. 3D digital tomosynthesis is also included in this exam. Comparison made with prior exam of 09/29/2012, 07/27/2023, 07/21/2022, 02/05/2021, 06/13/2019, 10/12/1999, . Findings: There are scattered areas of fibroglandular density. No sign of suspicious mass, tumor calcification or architectural distortion. Stable appearing calcifi cation seen in the lateral left breast. MM/MM scr BI tomosynthesis [id number] Impression: BI-RADS: 2 - Benign. FOLLOW-UP: 1 Year Follow-up This mammogram was also analyzed by the Computer Aided Detection System R2 Imag e Embossing Press Operator Apprentice.
== END 2024-07-30 13:31 | disposition home or self-care (01) ==
PROVIDERS: PCP Family Medicine; Visit Provider Family Medicine
DX: Z12.31 Encounter for screening mammogram for malignant neoplasm of breast (principal); R92.323 Mammographic fibroglandular density, bilateral breasts
CPT/HCPCS: 77063; 77067

== ENCOUNTER 2025-02-14 07:54 | Outpatient (CLI) | payer MEDICARE, OTHER, SELFPAY ==
--- NOTE | 2025-02-14 07:59 | USCV_ITS ---
Mayi Atkins Age: 74 Gender: F : 1950 Exam Date: 02/14/2025 08:30 Ordering Phys: Nemesio Ireland MD Technologist: [employer] Exam Location: [facility] – [place] Indication: elevated d dimer HISTORY: Lower extremity swelling. PROCEDURES: Venous duplex imaging was performed in bilateral lower extremities. The following venous structures were evaluated: common femoral vein, profunda vein, proximal portion of the greater saphenous vein, superficial femoral vein, and the popliteal vein. In addition, the posterior tibial and peroneal trunk were evaluated. FINDINGS: No evidence of DVT seen in any vessel visualized at this time. Right lower extremity Bonner's cyst noted. CONCLUSIONS No evidence of right lower extremity DVT. No evidence of left lower extremity DVT. RIGHT popliteal cyst 2.8 x 3.6cm with internal debris Charles Larry MD (Electronically Signed) Final Date: 14 February 2025 10:06 S
--- NOTE | 2025-02-14 07:59 | CT_ITS ---
WS: [email or web address] CTA OF THE CHEST WITH PULMONARY EMBOLISM PROTOCOL TECHNIQUE: High-resolution contrast enhanced CTA of the chest with coronal and sagittal reformatted images with pulmonary embolism protocol. MIP images are also reviewed. CLINICAL INFORMATION: ELEVATED D DIMER COMPARISON: None. DLP: 446.[address] scans at [facility] use at least one of these dose optimization techniques: automated exposure control; mA and/or kV adjustment per patient size (includes targeted exams where dose is matched to clinical indication); or iterative reconstruction. FINDINGS: Proximal main pulmonary arteries are normal. Normal segmental and subsegmental pulmonary arteries. No evidence of pulmonary embolus. Lungs are well aerated. No acute pulmonary infiltrates. Aortic calcification. Normal caliber thoracic aorta. Coronary calcification. No axillary lymphadenopathy. Small esophageal hiatal hernia. Cholelithiasis. Mild thoracic kyphosis. CT/CT angio chest PE protcl [id number] IMPRESSION: 1. No evidence of pulmonary embolus. 2. Lungs are well aerated. 3. Cholelithiasis.
[2025-02-14] MEDS: iohexol 350 mg/mL 500 mL Btl (per mL) IV (09:26)
== END 2025-02-14 07:55 | disposition home or self-care (01) ==
PROVIDERS: PCP Family Medicine; Visit Provider Family Medicine
DX: R79.89 Other specified abnormal findings of blood chemistry (principal); M71.21 Synovial cyst of popliteal space [Baker], right knee; K80.20 Calculus of gallbladder without cholecystitis without obstruction; I70.0 Atherosclerosis of aorta; I25.10 Atherosclerotic heart disease of native coronary artery without angina pectoris; K44.9 Diaphragmatic hernia without obstruction or gangrene; M40.294 Other kyphosis, thoracic region
CPT/HCPCS: 71275; 93970

== ENCOUNTER 2025-04-16 10:53 | Outpatient (CLI) | payer MEDICARE, OTHER, SELFPAY | END 2025-04-16 10:54 | disposition home or self-care (01) | PROVIDERS: PCP Family Medicine; Visit Provider Family Medicine | DX: R06.09 Other forms of dyspnea (principal); R94.2 Abnormal results of pulmonary function studies | CPT/HCPCS: 94010; 94726; 94729 ==

== ENCOUNTER 2025-05-01 07:33 | Emergency (ER) | payer MEDICARE, OTHER, SELFPAY ==
[2025-05-01] VITALS (20 sets, daily range): BP systolic 102–173; BP diastolic 65–107; PULSE 67–88; RESP 12–25; TEMP 36.9; O2SAT 87–100; BMI 45.7
--- NOTE | 2025-05-01 07:38 | CT_ITS ---
WS: [id number] CT HEAD NONCONTRAST HISTORY: Dizziness headache TECHNIQUE: Contiguous axial imaging performed through the brain. Bone and soft tissue windows. Sagittal and coronal reformats reviewed. All CT scans at [facility] use at least one of these dose optimization techniques: automated exposure control; mA and/or kV adjustment per patient size (includes targeted exams where dose is matched to clinical indication); or iterative reconstruction. DLP: 1327.61 mGy.cm COMPARISON: None available. No acute intracranial hemorrhage, midline shift or mass effect. Mild atrophy and small vessel disease. Ventricles: Normal size with no hydrocephalus. Paranasal sinuses: As visualized are clear. Mastoid air cells: Well pneumatized. Calvarium and scalp: Skull is intact with no soft tissue edema or swelling. Distal vertebral and carotid artery calcific atherosclerotic disease. CT/CT head wo con* [id number] IMPRESSION: 1. Mild cerebral and cerebellar atrophy and small vessel disease. 2. No intracranial hemorrhage or edema. 3. Atherosclerotic disease in the distal vertebral and carotid arteries.
--- NOTE | 2025-05-01 07:40 | ECG_ITS ---
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 Measurements Intervals [place] Rate: 81 P: 86 RI: 165 QRS: 10 QRSD: 105 T: -81 QT: 380 QTc: 442 Interpretive Statements SINUS RHYTHM LEFT VENTRICULAR HYPERTROPHY AND ST-T CHANGE [VOLTAGE CRITERIA PLUS ST/T ABNORMALITY] No previous ECG available for comparison Electronically Signed On 05-04-2025 08:53:54 CDT by Sebastian Constantino M.D. [email or web address]
--- NOTE | 2025-05-01 07:41 | W.ED.GENADLT ---
HPI - General Adult General: Chief complaint: Dizziness Stated complaint: dizzy, head hurt pain in the neck Time Seen by Provider: 05/01/25 07:36 History of Present Illness: 74-year-old female who presents to the emergency room with her son she is complaining of pain on the left side of her neck as well as dizziness. This began about 4 days ago she woke up with headache and neck pain dizziness and some blurry vision. Whenever she moves her neck she gets a sharp pain in her head. She describes the pain is radiating from the left side of her neck up into her head to both sides. The left side of her neck feels a swollen to her. She rates the pain 10 out of 10 no recent falls or trauma. She does have a history of previous neck and back surgery. She gets some nonvertiginous dizziness with movement in her head. She has not taken any of her medications this morning. Reviewing her medication list she recently started Trulicity. She also recently changed from desvenlafaxine to Lexapro. Associated symptoms: Deny chest pain, dyspnea or rash Related Data Home Medications ?Medication ?Instructions ?Recorded ?Confirmed amlodipine 5 mg-benazepril 40 mg 1 cap PO DAILY 01/17/20 05/01/25 capsule levothyroxine 88 mcg tablet 88 mcg PO DAILY 01/17/20 05/01/25 metformin 500 mg tablet,extended 1,000 mg PO DAILY 01/17/20 05/01/25 release 24hr (osmotic) metoprolol succinate 100 mg 100 mg PO DAILY 01/17/20 05/01/25 tablet,extended release 24 hr (Toprol XL) albuterol sulfate 90 mcg/actuation 2 puff inhalation Q4H PRN Wheezing 05/01/25 05/01/25 aerosol inhaler chlorthalidone 25 mg tablet 37.5 mg PO TID 05/01/25 05/01/25 desvenlafaxine succinate 50 mg 50 mg PO DAILY 05/01/25 05/01/25 tablet,extended release 24 hr dulaglutide 3 mg/0.5 mL 3 mg SUBCUT Q7D 05/01/25 05/01/25 subcutaneous pen injector (Trulicity) rosuvastatin 5 mg tablet 5 mg PO DAILY 05/01/25 05/01/25 Previous Rx's ?Medication ?Instructions ?Recorded hydrocodone 5 mg-acetaminophen 325 1 tab PO Q6H PRN pain #15 tabs 05/01/25 mg tablet methylprednisolone 4 mg tablets in See Rx Instructions PO .COMPLEX 05/01/25 a dose pack (Medrol (Haresh)) #21 ea Allergies Allergy/AdvReac Type Severity Reaction Status Date / Time No Known Allergies Allergy Verified 06/22/22 10:46 Review of Systems Const: Denies: fever(s) or chills Eyes: Reports: blurry vision Card: Denies: chest pain Resp: Denies: dyspnea GI: Denies: abdominal pain : Denies: dysuria, urinary frequency or urinary urgency Musc: Reports: neck pain; Denies: back pain Skin/Breast: Denies: rash PFSH ED PFSH: Medical History Urolithiasis History of recurrent UTI (urinary tract infection) Obstruction of left ureteropelvic junction (UPJ) due to stone Obstructive pyelonephritis History of osteoarthritis Chronic back pain Chronic neck pain Hypertension Diabetes Surgical History History of ureter stent History of neck surgery History of back surgery Family History Other Diabetes Social History Smoking and tobacco/nicotine status: current every day tobacco/nicotine user Alcohol intake: never Substance/Drug Use: unknown Adopted: No Caregiver/support person: No Lives independently: No Household members: spouse Marital status: Current occupational status: retired Current gender identity: Female Physical Exam Const: COMMON NORMALS: no acute distress GENERAL APPEARANCE: cooperative and comfortable ORIENTATION/CONSCIOUSNESS: Yes awake, Yes oriented to person, Yes oriented to place and Yes oriented to time HENMT: COMMON NORMALS: normocephalic, atraumatic and hearing grossly normal bilaterally HEAD & SCALP: normocephalic and atraumatic Resp: COMMON NORMALS: normal respiratory effort, No retractions, No use of accessory muscles and clear to auscultation bilaterally AUSCULTATION: clear to auscultation bilaterally Cardio: COMMON NORMALS: regular rate and regular rhythm RATE: regular rate RHYTHM: regular rhythm OTHER: Grade 2/6 systolic murmur GI: COMMON NORMALS: Soft to palpation and No hepatosplenomegaly present AUSCULTATION: Yes normoactive bowel sounds PALPATION: Yes Soft to palpation, No Tenderness to palpation present (GI), No Guarding due to palpation present (GI) and Yes No hepatosplenomegaly present Extremity: COMMON NORMALS: normal to inspection, capillary refill normal, no clubbing, cyanosis or edema, no calf tenderness and no pedal edema Neuro: SENSORIUM/ORIENTATION: Yes oriented to person, Yes oriented to place and Yes oriented to time OTHER: No focal neurologic deficits are noted. Normal facial symmetry good head sulfide operator strength equally normal strength and sensation lower extremities. Skin: COMMON NORMALS: no rashes or lesions noted GENERAL SKIN EXAM: no rashes or lesions noted Course Vital Signs: Vital signs: Vital Signs Temperature 98.4 F 05/01/25 07:42 Pulse Rate 76 05/01/25 12:33 Respiratory Rate 13 05/01/25 12:15 Blood Pressure 105/80 05/01/25 12:33 Pulse Oximetry 92 05/01/25 12:33 Oxygen Delivery Me thod Room Air 05/01/25 08:36 MDM - General Adult Medical Decision Making Initially patient presents with dizziness associated about a possible posterior stroke however her stroke score is [address] CT and CTA of the head and neck are negative she has had symptoms for several days she did on the CTA have a very small aneurysm which is likely not clinically significant at this time. Patient improved with pain medications given. I think a lot of her symptoms are related to her chronic neck issues we will discharge her home on a short course of steroids continue her prescription antihypertensives gave pain medication to use as needed. Follow-up with her primary care doctor within the week she may need to have more advanced imaging of her neck if her symptoms persist. Return if she has further problems. Reviewed findings with the family. Medical Records I reviewed the patient's medical records. Lab Data I reviewed the patient's lab results. 05/01/25 08:30 05/01/25 08:[address] 05/01/25 07:38 IMPRESSION: 1. Mild cerebral and cerebellar atrophy and small vessel disease. 2. No intracranial hemorrhage or edema. 3. Atherosclerotic disease in the distal vertebral and carotid arteries. Cervical Spine CT 05/01/25 07:53 IMPRESSION: 1. Status post anterior cervical fusion from C3-C7. Corpectomy at C4, C5 and C6. 2. Hypertrophic osteophytes at the disc levels resulting in foraminal stenosis. Most significant at C6-7. 3. Partial fusion of the facet joints, most significant at C4-5 and C5-6 which is new since 2015. Head/Neck CTA 05/01/25 08:56 IMPRESSION: 1. No high-grade cervical carotid artery stenosis. Mild plaque. 2. Proximal LEFT common carotid artery from the arch is not identified. In part this is due to the dense contrast during the IV injection within the subclavian vein. High-grade stenosis from the arch is not excluded. Consider CT angiogram of the aortic arch with IV injection through the RIGHT upper extremity. 3. Suspicious for 2 mm aneurysm extending medially from the LEFT A2 segment. Very tiny and best seen on the axial images, image 220 of series 6. [address] CT angiogram follow-up in 6 to 12 months. Chest X-Ray 05/01/25 10:00 Impression: Atherosclerosis. Laboratory Results WBC 8.10 10^3/uL (3.29-11.43) 05/01/25 08:30 RBC 4.41 10^6/uL (3.85-5.65) 05/01/25 08:30 Hgb 13.30 g/dL (11.27-16.99) 05/01/25 08:30 Hct 41.3 % (36-47) 05/01/25 08:30 MCV 93.7 fl (85-98) 05/01/25 08:30 MCH 30.2 pg (27-33) 05/01/25 08:30 MCHC 32.2 g/dL (30-55) 05/01/25 08:30 RDW 14.5 % (12.1-15.1) 05/01/25 08:30 Plt Count 255 10^3/cmm (157-399) 05/01/25 08:30 MPV 10.2 fL (7.4-10.4) 05/01/25 08:30 Neut % (Auto) 63.1 % 05/01/25 08:30 Lymph % (Auto) 27.4 % 05/01/25 08:30 [place] % (Auto) 7.0 % 05/01/25 08:30 Eos % (Auto) 2.0 % 05/01/25 08:30 Baso % (Auto) 0.4 % 05/01/25 08:30 Neut # (Auto) 5.11 10^3/uL (1.8-7.7) 05/01/25 08:30 Lymph # (Auto) 2.2 10^3/uL (0.8-4.8) 05/01/25 08:30 [place] # (Auto) 0.6 10^3/uL (0.2-0.9) 05/01/25 08:30 Eos # (Auto) 0.2 10^3/uL (0.0-0.8) 05/01/25 08:30 Baso # (Auto) 0.0 10^3/uL (0.0-0.1) 05/01/25 08:30 Nucleated RBC % (auto) 0 % 05/01/25 08:30 Nucleated RBCs # 0.0 /100WBC 05/01/25 08:30 Sodium 140 mmol/L (136-145) 05/01/25 08:30 Potassium 3.1 mmol/L (3.5-5.1) L 05/01/25 08:30 Chloride 99 mmol/L (98-107) 05/01/25 08:30 Carbon Dioxide 28 mmol/L (22-29) 05/01/25 08:30 Anion Gap 16.1 (5-19) 05/01/25 08:30 BUN 27 mg/dL (8-23) H 05/01/25 08:30 Creatinine 1.3 mg/dL (0.5-0.9) H 05/01/25 08:30 GFR Calculation Not Reportable 05/01/25 08:30 Glucose 115 mg/dL (65-115) 05/01/25 08:30 POC Glucose 127 mg/dL (70-110) H 05/01/25 08:34 Calculated Osmolality 296 mOsm/kg (285-295) H 05/01/25 08:30 Calcium 10.1 mg/dL (8.5-10.5) 05/01/25 08:30 Total Bilirubin 0.2 mg/dL (0.15-1.2) 05/01/25 08:30 AST 17 U/L (0-32) 05/01/25 08:30 ALT 13 U/L (0-33) 05/01/25 08:30 Alkaline Phosphatase 63 U/L (35-105) 05/01/25 08:30 Troponin T Baseline 35 ng/L (0-10) H 05/01/25 08:30 Troponin T 120 Minute 29.99 ng/L (0-10) H 05/01/25 10:49 Delta Troponin T -5.01 ABS# (0-10) L 05/01/25 10:49 Total Protein 7.9 g/dL (6.6-8.7) 05/01/25 08:30 Albumin 3.9 g/dL (3.5-5.2) 05/01/25 08:30 Globulin 4.0 g/dL (1.3-4.6) 05/01/25 08:30 Urine Color Yellow (Yellow) 05/01/25 10:21 Urine Appearance Clear (CLEAR) 05/01/25 10:21 Urine pH 5.0 (5-7) 05/01/25 10:21 Ur Specific [place] 1.031 (1.005-1.030) H 05/01/25 10:21 Urine Protein Negative (Negative) 05/01/25 10:21 Urine Glucose (UA) Negative (Normal) 05/01/25 10:21 Urine Ketones Negative (Negative) 05/01/25 10:21 Urine Blood Negative (Negative) 05/01/25 10:21 Urine Nitrate Negative (Negative) 05/01/25 10:21 Urine Bilirubin Negative (Negative) 05/01/25 10:21 Urine Urobilinogen 0.2 mg/dL (Negative) 05/01/25 10:21 Ur Leukocyte Esterase 1+ (Negative) A 05/01/25 10:21 Urine RBC 0-2 /hpf (0-2) 05/01/25 10:21 Urine WBC 6-10 /hpf (0-5) 05/01/25 10:21 Ur Squamous Epith Cells 0-5 /hpf (0-5) 05/01/25 10:21 Amorphous Sediment Not Reportable 05/01/25 10:21 Urine Bacteria None seen /hpf (NONE) 05/01/25 10:21 Hyaline Casts 5.36 /lpf 05/01/25 10:21 All radiology interpretation(s) finalized by discharge Discharge Plan Discharge Patient Disposition: Home Clinical Impression: Diabetes, Hypertension, Cervicalgia Condition: Stable Prescriptions: New hydrocodone-acetaminophen 5-325 mg tablet 1 tab PO Q6H PRN (Reason: pain) Qty: 15 0RF methylprednisolone [Medrol (Haresh)] 4 mg tablets,dose pack See Rx Instructions .ROUTE .COMPLEX Qty: 21 0RF Rx Instructions: orally per package directions No Action amlodipine-benazepril 5-40 mg capsule 1 cap PO DAILY metoprolol succinate [Toprol XL] 100 mg tablet extended release 24 hr 100 mg PO DAILY levothyroxine 88 mcg tablet 88 mcg PO DAILY metformin 500 mg Tablet Extended Release 24hr 1,000 mg PO DAILY chlorthalidone 25 mg tablet 37.5 mg PO TID albuterol sulfate 90 mcg/actuation HFA aerosol inhaler 2 puff INHALATION Q4H PRN (Reason: Wheezing) rosuvastatin 5 mg tablet 5 mg PO DAILY desvenlafaxine succinate 50 mg tablet extended release 24 hr 50 mg PO DAILY Trulicity 3 mg/0.5 mL pen injector 3 mg SUBCUT Q7D Rx Instructions: Tuesday's Discharge Orders: Discharge ED (Routine); Ordered 05/01/25 Ordered By: Gordy Westbrook Referrals: Nemesio Ireland MD [Primary Care Provider, Family Practice] Discharge Diet: Usual diet Discharge Activity: Resume usual activity Patient Instructions: Opioid Safety, Pain Management, Patient Portal & Rajni Instructions Activity Restrictions/Additional Instructions: Thank you for choosing [facility] for your healthcare needs today. It is very important that you follow up as instructed or that you return to the Emergency Department should you have concerns or if your condition changes or worsens in any way. You were seen in the emergency room with complaint of neck and head pain. You also mentioned you had some dizziness. When the initial arrived her blood pressure was elevated. We gave you your usual home medications which controlled your blood pressure well. CT of your head and CTA of the head and neck did not show any signs of acute stroke there is a small aneurysm but it is likely not contributing to your symptoms today. Additionally there is a slight increase in your kidney function which is why Dr. Ireland likely stopped your lisinopril. You were given pain medications and a steroid taper for your neck. Recommend you follow-up with Dr. Ireland within the next week to reevaluate your blood pressure and recheck your kidney function. He can also review the images that were done today and discussed with you follow-up on the small aneurysm that was seen the radiologist recommended follow-up in 6 to 12 months. Print Language: Icelandic Coding Level of Care Code ED Brand Ambassador Promotional Model for Pearl Carpenter NIH stroke score NIHSS Level Of Consciousness - 1a: 0 Level Of Consciousness Questions - 1b: Both Correct Level Of Consciousness Commands - 1c: Both Correct Best Gaze - 2: Normal Visual Smith - 3: No Visual Loss Facial Palsy - 4: Normal Motor Arm Right - 5: No Drift Motor Arm Left - 5: No Drift Motor Leg Right - 6: No Drift Motor Leg Left - 6: No Drift Limb Ataxia - 7: Absent Sensory - 8: Normal (Hyperesthesia on the left side of the face) Best Language - 9: No Aphasia Dysarthia - 10: Normal Extinction And Inattention - 11: 0 Score Total Score: 0
--- OUTSIDE RECORDS SUMMARY | 2025-05-01 07:44 | XMS_ITS | Patient Health Record ---
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 Name Role Phone Alfredo Funes MD Primary Care Provider Unavail able Alfredo Saini MD Unavailable [phone] Reed Thompson MD Unavailable Unavailable Reason For Referral No Information Medications Medication SIG (Take, Route, Frequency, Duration) Notes Start Date End Date Status Metoprolol Succinate ER 100 mg 1 tab orally once a day Acti ve Vitamin B-12 500 mcg orally as directed Active Red Yeast Rice 600 mg orally as directed Active amlodipine-benazepril 5 mg-40 mg 1 cap orally once a day Acti ve levothyroxine 88 mcg (0.088 mg) 1 tab orally once a day Acti ve traMADol 50 mg 1 tab po orally QID prn pain Active 1 Multivitamins with Folic Acid 0.975 mg gummies orally as directed Active Social History Tobacco Use: Social History Observation Description Date Details (start date - stop date) Former Smoker NA - NA Tobacco use: Question Answer Notes : former smoker How long has it been since you last smoked? 1-5 years Problems Problem Type SNOMED Code ICD Code Onset Dates Problem Status W/U Status Risk Notes Problem Low back pain (997738220) Low back pain (M54.5) Active confirmed Problem Lumbosacral spondylosis without myelopathy (67075113) Spondylosis without myelopathy or radiculopathy, lumbar region (M47.816) Active confirmed Problem Anxiety disorder (649146082) Other specified anxiety disorders (F41.8) Active confirmed Problem Acquired spondylolisthesis (675569085) Spondylolisthesis , lumbar region (M43.16) Active confirmed Problem Post-laminectomy syndrome (22443683) Postlaminectomy syndrome, not elsewhere classified (M96.1) Active confirmed Problem Long-term current use of drug therapy (376180407) Other joint terminal attack controller (current) drug therapy (Z79.899) Active confirmed Plan Of Treatment No Information Insurance Providers Payer Name Payer Address Payer Phone Subscriber Number Group Number Insured Name Patient Relationship to Insured Coverage Start Date Coverage End Date [employer] Medicare Part B Claims Department [address] [address] [place] [address] [id number] Pat Atkinsta Self - patient is the insured [facility] [address] [place] [address] [id number] Mayi Atkins Self - patient is the insured Medical (General) History Medical History History ICD Code Low back pain Post-laminectomy syndrome, lumbar Lumbar disc disease Spondylolisthesis Diabetes mellitus type II Surgical History Surgery Date(Month/Year) L2-5 Laminectomy 2004 C3-4 ACDFF, C6 Corpectomy 2014 Re-exploration L2-L5 Laminectomy 08/19/20 14 Bilateral carpal tunnel 2014 Hospitalization History Reason Date(Month/Year) Sleep apnea 2004
--- NOTE | 2025-05-01 07:53 | CT_ITS ---
WS: [id number] CT CERVICAL SPINE HISTORY: Neck pain TECHNIQUE: Contiguous 2.0 mm axial imaging performed through the entire cervical spine. Sagittal and coronal reformats also performed. All CT scans at [facility] use at least one of these dose optimization techniques: automated exposure control; mA and/or kV adjustment per patient size (includes targeted exams where dose is matched to clinical indication); or iterative reconstruction. DLP: 1327.61 mGy.cm COMPARISON: 09/30/2014 Straightening of the normal cervical lordosis. Prior surgical fusion hardware is noted. Anterior fusion extends from C3-C7. Corpectomy cage at C4, C5 and C6. Very similar in appearance as compared to 09/30/2014. No destructive bone lesions. Facet joints are aligned. Partial fusion across the facet joints. C2-C3: Mild disc bulging and facet arthritis. C3-C4: Central osteophytic hypertrophic changes encroaching upon the ventral thecal sac. Mild facet arthritis. C4-C5: Osteophytic ridging and facet disease. Mild foraminal stenosis. C5-C6: Osteophytic ridging and facet disease. Mild bilateral foraminal stenosis, LEFT greater than RIGHT. C6-C7: Hypertrophic osteophytic ridging. Moderate bilateral foraminal stenosis. C7-T1: No stenosis. Paravertebral soft tissues are negative. Reidentified is is long-term stability LEFT oropharyngeal tonsillar prominence. No change since 2014. CT/CT cervical spin wo con* [id number] IMPRESSION: 1. Status post anterior cervical fusion from C3-C7. Corpectomy at C4, C5 and C 6. 2. Hypertrophic osteophytes at the disc levels resulting in foraminal stenosis . Most significant at C6-7. 3. Partial fusion of the facet joints, most significant at C4-5 and C5-6 which is new since 2014.
[2025-05-01] MEDS: metoprolol succinate ER (24 HR) 50 mg Tablet 100 MG PO (08:19)
[2025-05-01] MEDS: ondansetron 2 mg/ML SDV 2 mL 4 MG IVP (08:19)
[2025-05-01] MEDS: morphine 4 mg/mL SDV 1 mL IVP (08:20)
[2025-05-01 08:35] LABS: Hematocrit 41.3 % (36-47); Hemoglobin 13.30 g/dL (11.27-16.99); Mean Corpuscular HGB Conc 32.2 g/dL (30-55); Mean Corpuscular Hemoglobin 30.2 pg (27-33); Mean Corpuscular Volume 93.7 fl (85-98); Nucleated Red Blood Cells % 0 %; Platelet Count 255 10^3/cmm (157-399); Red Blood Count 4.41 10^6/uL (3.85-5.65); White Blood Count 8.10 10^3/uL (3.29-11.43)
--- NOTE | 2025-05-01 08:42 | PC.NURSE ---
Addendum entered by Cristina Gomez 05/01/25 11:12: Pt also has Tramadol 50mg bid prn last fill 09/2023 #180 tablets. Information provided by [employer] home delivery Original Note: After scanning all of the medications to give to the pt, pt's family stated that the pt's PCP took her off lisinopril due to a reaction pt's family state they are not sure what the reaction is but they would like to hold off on her taking it at this time. I wasted the lisinopril in the pyxis.
[2025-05-01 08:52] LABS: Troponin(5th) Baseline 35 ng/L (0-10)
--- NOTE | 2025-05-01 08:56 | CT_ITS ---
WS: [id number] CT ANGIOGRAM CEREBRAL AND CAROTID ARTERIES HISTORY: Headache dizziness TECHNIQUE: CT angiogram is performed of the carotid and cerebral arteries. During arterial injection imaging is obtained from the skull vertex to the aortic arch in 1.25 mm imaging. Coronal and sagittal reformats are submitted. Additional multi planar reformats of the carotid and cerebral arteries are submitted, MIP imaging also reviewed. NASCET criteria utilized. All CT scans at [facility] use at least one of these dose optimization techniques: automated exposure control; mA and/or kV adjustment per patient size (includes targeted exams where dose is matched to clinical indication); or iterative reconstruction. CONTRAST: Omnipaque 350; 100 mL IV. DLP: 479.00 mGy.cm COMPARISON: CT head 05/01/2025 Carotid Angiogram: Right carotid: Common carotid artery: Normal arises from the innominate artery. Tortuous carotid artery with no high-grade stenosis. Internal carotid artery: Small amount of calcified plaque. No stenosis or dissection. External carotid artery: Patent. Left carotid: Common carotid artery: The configuration of the origin of the RIGHT common carotid artery cannot be determined. There is a large amount of artifact from the injected contrast in the LEFT subclavian vein. Internal carotid artery: Small amount of plaque. No stenosis. No dissection. External carotid artery: Patent. Right vertebral artery: Unremarkable. Left vertebral artery: Unremarkable. Arises normally from the subclavian artery. Subclavian arteries: Normal RIGHT subclavian artery. LEFT subclavian artery is partially obscured. Upper thorax: Thin septation in the trachea is likely mucus secretions. Thyroid gland: Normal. Osseous structures: Prior anterior cervical fusion hardware with corpectomy. CEREBRAL ANGIOGRAM: Intracranial vertebral arteries: Patent. Basilar artery: No significant stenosis or occlusion. No aneurysm. Intracranial Internal carotid arteries: Increasing plaque to the carotid cavernous sinuses. Stenosis less than 50%. No occlusion. Middle cerebral arteries: Normal. Anterior cerebral arteries and ACOM: Small caliber RIGHT A1 segment but no high- grade stenosis. Very tiny outpouching suspicious for 2 mm aneurysm just distal to the anterior communicating artery. Tiny outpouching extends centrally from the proximal LEFT A2 segment. Posterior cerebral arteries and PCOM's: Normal. Dural venous sinuses are normally enhancing. Mastoid air cells: Normal. Paranasal sinuses: Normal. Calvarium: Normal. CT/CT angio headneck* [id number] IMPRESSION: 1. No high-grade cervical carotid artery stenosis. Mild plaque. 2. Proximal LEFT common carotid artery from the arch is not identified. In par t this is due to the dense contrast during the IV injection within the subclavi an vein. High-grade stenosis from the arch is not excluded. Consider CT angiogr am of the aortic arch with IV injection through the RIGHT upper extremity. 3. Suspicious for 2 mm aneurysm extending medially from the LEFT A2 segment. V nito tiny and best seen on the axial images, image 220 of series 6. [address] CT angiogram follow-up in 6 to 12 months.
[2025-05-01 09:01] LABS: Chloride 99 mmol/L (98-107); Potassium 3.1 mmol/L (3.5-5.1); Sodium 140 mmol/L (136-145)
[2025-05-01 09:15] LABS: Alanine Aminotransferase 13 U/L (0-33); Alkaline Phosphatase 63 U/L (35-105); Anion Gap 16.1 (5-19); Aspartate Amino Transferase 17 U/L (0-32); Blood Urea Nitrogen 27 mg/dL (8-23); Calcium 10.1 mg/dL (8.5-10.5); Carbon Dioxide 28 mmol/L (22-29); Creatinine Clr Calc Pharmacy 43.8334; Glucose 115 mg/dL (65-115); Osmolality Calculated 296 mOsm/kg (285-295); Total Protein 7.9 g/dL (6.6-8.7)
[2025-05-01 09:29] LABS: Albumin Level 3.9 g/dL (3.5-5.2); Globulin 4.0 g/dL (1.3-4.6)
[2025-05-01] MEDS: iohexol 350 mg/mL 500 mL Btl (per mL) IV (09:52)
--- NOTE | 2025-05-01 10:00 | XR_ITS ---
WS: [id number] Portable AP upright chest, 05/01/2025 Clinical Data: dyspnea/cough Comparison: Two-view chest, 02/12/2025 Findings: No nodules, masses or effusions are seen. The heart is normal. The pulmonary vascularity is not increased. No pneumonia or pneumothorax is seen. The aortic arch and descending thoracic aorta show tortuosity. There is an anterior cervical disc fusion. Monitor leads are on the chest wall. XR/XR chest 1V portable [id number] Impression: Atherosclerosis.
--- NOTE | 2025-05-01 10:04 | ECG_ITS ---
[facility] Test Date: 2025-05-01 Pat Name: Mayi Atkins Department: Room: Gender: Female Director College: : 1950 Requested By: Gordy Hernandez Order Number: [id number] Wing MD: Sebastian Constantino M.D. Measurements Intervals Collins Rate: 78 P: 42 WI: 185 QRS: 14 QRSD: 97 T: -67 QT: 369 QTc: 422 Interpretive Statements SINUS RHYTHM MODERATE T-WAVE ABNORMALITY, CONSIDER ANTERIOR ISCHEMIA [-0.1+ mV T-WAVE IN V3/V4] Compared to ECG 05/01/2025 08:39:38 T-wave abnormality now present Possible ischemia now present Left ventricular hypertrophy no longer present ST (T wave) deviation no longer present Electronically Signed On 05-04-2025 09:46:06 CDT by Sebastian Constantino M.D. [email or web address]
[2025-05-01 10:46] LABS: Glucose Urine UA Negative (Normal); Nitrate Urine Negative (Negative)
[2025-05-01 10:49] LABS: Add Urine Microscopic? YES
[2025-05-01 10:59] LABS: Specific Gravity, Urine 1.031 (1.005-1.030)
[2025-05-01] MEDS: HYDROmorphone 0.5 MG/0.5 ML INJ IVP (11:12)
[2025-05-01 11:19] LABS: Troponin 5 2HR 29.99 ng/L (0-10)
[2025-05-01 11:20] LABS: Troponin 5 2HR Delta -5.01 ABS# (0-10)
== END 2025-05-01 12:34 | disposition home or self-care (01) ==
PROVIDERS: Emergency Provider Family Medicine; PCP Family Medicine
DX: E11.9 Type 2 diabetes mellitus without complications (principal); I10 Essential (primary) hypertension; M54.2 Cervicalgia; Z79.84 Long term (current) use of oral hypoglycemic drugs; Z72.0 Tobacco use
CPT/HCPCS: 36415; 36416; 70450; 70496; 70498; 71045; 72125; 80053; 81001; 82962; 84484; 85025; 93005; 96374; 96375; 99285; J1171; J2270; J2405; J9999

== ENCOUNTER 2025-05-15 07:20 | Outpatient (CLI) | payer MEDICARE, OTHER, SELFPAY ==
--- NOTE | 2025-05-15 07:29 | CT_ITS ---
WS: [id number] CT ANGIOGRAM CEREBRAL ARTERIES HISTORY: ANTERIOR CEREBRAL ANEURYSM, NONRUPTURED TECHNIQUE: Pre and postcontrast imaging through the brain. CT angiogram is performed of the cerebral arteries. During arterial injection imaging is obtained from the skull vertex to the skull base in 1.25 mm imaging. Coronal and sagittal reformats are submitted. Additional multi planar reformats of the cerebral arteries are submitted, MIP imaging also reviewed. All CT scans at [facility] use at least one of these dose optimization techniques: automated exposure control; mA and/or kV adjustment per patient size (includes targeted exams where dose is matched to clinical indication); or iterative reconstruction. CONTRAST: Omnipaque 350; 100 mL IV. DLP: 1604.43 mGy.cm COMPARISON: 05/01/[address] head: Mild atrophy and small vessel disease. No acute hemorrhage. No infarct. Intracranial vertebral arteries: Small amount of plaque distal RIGHT vertebral artery at the skull base. LEFT vertebral artery is patent. Basilar artery: No significant stenosis or occlusion. No aneurysm. Intracranial Internal carotid arteries: Patent with calcification at the carotid cavernous sinuses. Stenosis less than 50%. Middle cerebral arteries: Normal. Anterior cerebral arteries and ACOM: Reidentified is the tiny, 2 mm possible aneurysm extending centrally just distal to the anterior communicating artery. Posterior cerebral arteries and PCOM's: Normal. Dural venous sinuses are normally enhancing. Mastoid air cells: Normal. Paranasal sinuses: Normal. Calvarium: Normal. CT/CT angio head [id number] IMPRESSION: 1. Reidentified is a very tiny, 2 mm possible aneurysm extending medially from the LEFT A2 segment. Small cerebral artery aneurysm is not excluded. Recommend follow-up CT angiogram in 12 months. 2. Mild atherosclerotic plaque in the distal RIGHT vertebral artery. No occlus ion.
[2025-05-15] MEDS: iohexol 350 mg/mL 500 mL Btl (per mL) IV (08:38)
== END 2025-05-15 07:21 | disposition home or self-care (01) ==
LOC: RAD 07:21
PROVIDERS: PCP Family Medicine; Visit Provider Family Medicine
DX: I67.1 Cerebral aneurysm, nonruptured (principal); I65.01 Occlusion and stenosis of right vertebral artery
CPT/HCPCS: 70496

== ENCOUNTER 2025-08-12 06:30 | Outpatient (RCR) | payer MEDICARE, OTHER, SELFPAY | END 2025-09-11 23:59 | disposition home or self-care (01) | LOC: SPT 06:30 | PROVIDERS: Visit Provider General Practice | DX: M96.1 Postlaminectomy syndrome, not elsewhere classified (principal) | CPT/HCPCS: 97110; 97161 ==